=== PATIENT | male | born 1940 | race Two or more races ===

== ENCOUNTER 2018-10-23 14:53 | Inpatient (IN) | payer MEDICARE ==
[~2018-10-23] VITALS: Ht 170.2 cm; Wt 73.5 kg
[2018-10-23] MEDS ORDERED: HYDR-4354 PO (15:14)
[2018-10-23] MEDS ORDERED: MAGN400T6 PO (15:14)
[2018-10-23] MEDS ORDERED: CARV25TA2 PO (15:14)
[2018-10-23] MEDS ORDERED: ISOS30TA6 PO (15:14)
[2018-10-23] MEDS ORDERED: NA P133E RC (15:14)
[2018-10-23] MEDS ORDERED: FOLI1TAB16 PO (15:14)
[2018-10-23] MEDS ORDERED: LOSA25TA3 PO (15:14)
[2018-10-23] MEDS ORDERED: SULF1TAB48 PO (15:14)
[2018-10-23] MEDS ORDERED: AMLO10TA7 PO (15:14)
[2018-10-23] MEDS ORDERED: BISA10SU11 RC (15:14)
[2018-10-23] MEDS ORDERED: ATOR40TA PO (15:14)
[2018-10-23] MEDS ORDERED: ASCO500T10 PO (15:14)
[2018-10-23] MEDS ORDERED: FERR325T28 PO (15:14)
[2018-10-23] MEDS ORDERED: DOCU100C36 PO (15:14)
[2018-10-23] MEDS ORDERED: IPRA3AMP23 IH ×2 (15:14)
[2018-10-23] MEDS ORDERED: MAGN400O6 PO (15:14)
[2018-10-23] MEDS ORDERED: ASPI81TA31 PO (15:14)
[2018-10-23] MEDS ORDERED: POLY17PO4 PO (15:14)
[2018-10-23] MEDS ORDERED: BLOO-360 IN (15:40)
[2018-10-23] MEDS ORDERED: RIVA10TA PO (15:40)
[2018-10-23] MEDS ORDERED: ACET-73 PO (15:40)
[2018-10-23] MEDS ORDERED: INSU100I19 SQ (15:40)
[2018-10-23] MEDS ORDERED: PANT40TA4 PO (15:40)
[2018-10-23] MEDS ORDERED: ZINC220C8 PO (15:40)
[2018-10-23] MEDS ORDERED: ALBU2.5V38 IH ×2 (15:40)
[2018-10-23] MEDS ORDERED: HYDR-3326 PO (15:40)
[2018-10-23] MEDS ORDERED: METF-442 PO (15:40)
[2018-10-23] MEDS ORDERED: MULT-213 PO (15:40)
[2018-10-23 15:42] LABS: BASOPHILS # (AUTO) 0.1 K/uL (0.0-8.0); BASOPHILS % (AUTO) 0.7 % (0.0-2.0); EOSINOPHILS # (AUTO) 0.1 K/uL (0.0-0.7); EOSINOPHILS % (AUTO) 0.6 % (0.0-7.0); LYMPHOCYTES # (AUTO) 1.1 K/uL (20.0-40.0); LYMPHOCYTES % (AUTO) 11.6 % (20.5-51.5); MEAN CORPUSCULAR HEMOGLOBIN 23.7 uug (23.8-33.4); MEAN CORPUSCULAR HGB CONC 33 g/dL (32.5-36.3); MEAN CORPUSCULAR VOLUME 71.2 fL (73.0-96.2); MONOCYTES # (AUTO) 0.6 K/uL (2.0-10.0); MONOCYTES % (AUTO) 6.6 % (0.0-11.0); NEUTROPHILS # (AUTO) 7.4 K/uL (1.8-8.9); NEUTROPHILS % (AUTO) 80.5 % (38.5-71.5); PLATELET COUNT (AUTO) 241 K/uL (152-348); RED BLOOD CELL COUNT(AUTO) 2.88 MIL/uL (4.06-5.63); WHITE BLOOD COUNT (AUTO) 9.2 K/uL (3.6-10.2)
[2018-10-23 15:50] LABS: CARBON DIOXIDE 25 mmol/L (21-32); CHLORIDE 99 mmol/L (98-107); CREATININE 1.2 mg/dL (0.6-1.3); GLUCOSE 271 mg/dL (74-106); HEMATOCRIT 20.5 % (36.7-47.1); POTASSIUM 5.3 mmol/L (3.5-5.1); UREA NITROGEN, BLOOD 30 mg/dL (7-18)
[2018-10-23 15:52] LABS: HEMOGLOBIN 6.8 g/dL (12.5-16.3)
[2018-10-23 15:56] LABS: ALANINE AMINOTRANSFERASE 16 U/L (16-63); ALKALINE PHOSPHATASE 115 U/L (50-136); ASPARTATE AMINOTRANSFERASE 14 U/L (15-37); BILIRUBIN,DIRECT 0.1 mg/dL (0.0-0.2); BILIRUBIN,TOTAL 0.1 mg/dL (0.2-1.0)
[2018-10-23 16:01] LABS: LYMPHOCYTES % (MANUAL) 16 % (20-40); MONOCYTES % (MANUAL) 4 % (2-10); NEUTROPHILS % (MANUAL) 78 % (42-75)
[2018-10-23 18:45] VITALS: BP 120/78
[2018-10-23] MEDS ORDERED: ALBUTEROL SULFATE 2.5 MG/3 ML NEBU IH PRN (20:15)
[2018-10-23 20:33] VITALS: BP 123/51
[2018-10-23] MEDS ORDERED: ONDANSETRON 4 MG/2 ML VIAL IV PRN (20:45)
[2018-10-23] MEDS ORDERED: ACETAMINOPHEN 650 MG SUPP.RECT RC PRN (20:45)
[2018-10-23] MEDS ORDERED: DEXTROSE 50% 50 ML DISP.SYRIN IV PRN (20:45)
[2018-10-23] MEDS ORDERED: MORPHINE SULFATE 2 MG/1 ML DISP.SYRIN IV PRN (20:45)
[2018-10-23] MEDS ORDERED: IPRATROPIUM BROMIDE 0.5 MG/2.5 ML NEBU NEB PRN (20:45)
[2018-10-23] MEDS ORDERED: INSULIN DETEMIR 300 UNIT/3 ML CARTRIDGE SQ SCH (21:00)
[2018-10-23 21:11] LABS: IRON, SERUM 8 ug/dL (50-175)
[2018-10-23] MEDS: IV D5/ 0.9% NACL 1,000 ML IV PRN (22:02)
[2018-10-23] MEDS ORDERED: INSULIN GLARGINE,HUM 300 UNITS/3 ML CARTRIDGE SQ ONE (22:15)
[2018-10-23] MEDS: BLOOD SUGAR DIAGNOSTIC 1 EACH STRIP VI SCH ×2 (22:20→23:56)
[2018-10-23] MEDS: INSULIN GLARGINE,HUM 300 UNITS/3 ML CARTRIDGE SQ SCH (22:33)
[2018-10-23 23:51] VITALS: BP 122/55
[2018-10-24] VITALS (11 sets, daily range): BP systolic 123–162; BP diastolic 54–70
[2018-10-24] MEDS ORDERED: INSULIN REGULAR, HUMAN 300 UNIT/3 ML VIAL ONE (00:10)
[2018-10-24] MEDS: INSULIN REGULAR, HUMAN 300 UNIT/3 ML VIAL SQ PRN ×3 (00:39→17:55)
[2018-10-24] MEDS: HYDROMORPHONE 1 MG/1 ML DISP.SYRIN IV PRN ×4 (01:49→20:07)
[2018-10-24 04:10] LABS: HEMATOCRIT 20.3 % (36.7-47.1); HEMOGLOBIN 6.6 g/dL (12.5-16.3)
[2018-10-24] MEDS: BLOOD SUGAR DIAGNOSTIC 1 EACH STRIP VI SCH ×4 (05:55→20:14)
[2018-10-24 07:23] LABS: BASOPHILS % (AUTO) 0.5 % (0.0-2.0); EOSINOPHILS % (AUTO) 0.5 % (0.0-7.0); LYMPHOCYTES % (AUTO) 11.2 % (20.5-51.5); MEAN CORPUSCULAR HEMOGLOBIN 23.8 uug (23.8-33.4); MEAN CORPUSCULAR HGB CONC 33 g/dL (32.5-36.3); MEAN CORPUSCULAR VOLUME 71.3 fL (73.0-96.2); MONOCYTES # (AUTO) 0.7 K/uL (2.0-10.0); MONOCYTES % (AUTO) 7.1 % (0.0-11.0); NEUTROPHILS # (AUTO) 7.4 K/uL (1.8-8.9); NEUTROPHILS % (AUTO) 80.7 % (38.5-71.5); PLATELET COUNT (AUTO) 294 K/uL (152-348); RED BLOOD CELL COUNT(AUTO) 2.95 MIL/uL (4.06-5.63); WHITE BLOOD COUNT (AUTO) 9.1 K/uL (3.6-10.2)
[2018-10-24 07:30] LABS: ALANINE AMINOTRANSFERASE 13 U/L (16-63); ALKALINE PHOSPHATASE 115 U/L (50-136); ASPARTATE AMINOTRANSFERASE 14 U/L (15-37); BILIRUBIN,TOTAL 0.1 mg/dL (0.2-1.0); CARBON DIOXIDE 25 mmol/L (21-32); CHLORIDE 102 mmol/L (98-107); CHOLESTEROL 89 mg/dL (<200); GLUCOSE 109 mg/dL (74-106); HDL CHOLESTEROL 36 mg/dL (40-60); MAGNESIUM 2.3 mg/dL (1.8-2.4); PHOSPHOROUS 3.8 mg/dL (2.5-4.9); POTASSIUM 4.9 mmol/L (3.5-5.1); TOTAL PROTEIN, SERUM 6.2 g/dL (6.4-8.2); TRIGLYCERIDES 35 MG/DL (30-150); UREA NITROGEN, BLOOD 25 mg/dL (7-18)
[2018-10-24] MEDS ORDERED: PANTOPRAZOLE SODIUM 40 MG VIAL IV SCH (09:00)
[2018-10-24] MEDS: MUPIROCIN 2% OINT 22 GM TUBE TP SCH ×2 (09:21→20:07)
[2018-10-24 09:33] LABS: THYROID STIMULATING HORMONE 1.464 mIU/mL (0.358-3.740)
[2018-10-24] MEDS: SODIUM HYPOCHLORITE 0.125% 473 ML BOTTLE TP SCH (09:52)
[2018-10-24] MEDS: FAMOTIDINE. 20 MG/2 ML VIAL IV SCH ×2 (10:16→20:06)
[2018-10-24 10:42] LABS: BASOPHILS % (MANUAL) 1 % (0-2); EOSINOPHILS % (MANUAL) 1 % (0-8); LYMPHOCYTES % (MANUAL) 11 % (20-40); MONOCYTES % (MANUAL) 4 % (2-10); NEUTROPHILS % (MANUAL) 83 % (42-75)
[2018-10-24] MEDS ORDERED: Z GUARD REMEDY PASTE 57 GM TUBE TOP PRN (12:30)
[2018-10-24] MEDS: IV D5/ 0.9% NACL 1,000 ML IV PRN (15:30)
[2018-10-24] MEDS: FUROSEMIDE 20 MG/2 ML VIAL IV SCH (16:30)
[2018-10-24] MEDS: INSULIN GLARGINE,HUM 300 UNITS/3 ML CARTRIDGE SQ SCH (20:14)
[2018-10-24] MEDS ORDERED: VANCOMYCIN IV 1 G in PREMIXED 0 EACH IV SCH (21:30)
[2018-10-24] MEDS ORDERED: PIPERACILLIN/TAZO 0.75 G in IV DEXTROSE 5% 50 ML IV PRN (21:30)
[2018-10-24] MEDS ORDERED: VANCOMYCIN IV 1 G in PREMIXED 0 EACH IV ONE (23:00)
[2018-10-24] MEDS ORDERED: PIPERACILLIN/TAZOBACTAM/D5W 50 ML IV ONE (23:35)
[2018-10-24] MEDS ORDERED: VANCOMYCIN 1000 MG VIAL ONE (23:35)
[2018-10-25] MEDS ORDERED: VANCOMYCIN IV 1,000 MG in IV NORMAL SALINE 250 ML IV ONE ×2
[2018-10-25 00:58] VITALS: BP 149/57
[2018-10-25] MEDS: HYDROMORPHONE 1 MG/1 ML DISP.SYRIN IV PRN ×3 (02:37→22:03)
[2018-10-25 04:00] VITALS: BP 156/60
[2018-10-25] MEDS ORDERED: PIPERACILLIN/TAZOBACTAM/D5W 50 ML IV ONE (05:33)
[2018-10-25] MEDS: BLOOD SUGAR DIAGNOSTIC 1 EACH STRIP VI SCH ×3 (05:41→17:22)
[2018-10-25] MEDS: PIPERACILLIN/TAZOBACTAM/D5W 50 ML IV SCH ×2 (06:13)
[2018-10-25 06:27] LABS: BASOPHILS # (AUTO) 0.1 K/uL (0.0-8.0); BASOPHILS % (AUTO) 0.5 % (0.0-2.0); EOSINOPHILS # (AUTO) 0.1 K/uL (0.0-0.7); EOSINOPHILS % (AUTO) 0.6 % (0.0-7.0); HEMATOCRIT 24.8 % (36.7-47.1); HEMOGLOBIN 8.2 g/dL (12.5-16.3); LYMPHOCYTES # (AUTO) 1.1 K/uL (20.0-40.0); LYMPHOCYTES % (AUTO) 11.9 % (20.5-51.5); MEAN CORPUSCULAR HEMOGLOBIN 24.2 uug (23.8-33.4); MEAN CORPUSCULAR HGB CONC 33 g/dL (32.5-36.3); MEAN CORPUSCULAR VOLUME 73.6 fL (73.0-96.2); MONOCYTES # (AUTO) 0.7 K/uL (2.0-10.0); MONOCYTES % (AUTO) 7.3 % (0.0-11.0); NEUTROPHILS # (AUTO) 7.4 K/uL (1.8-8.9); NEUTROPHILS % (AUTO) 79.7 % (38.5-71.5); PLATELET COUNT (AUTO) 351 K/uL (152-348); RED BLOOD CELL COUNT(AUTO) 3.37 MIL/uL (4.06-5.63); WHITE BLOOD COUNT (AUTO) 9.3 K/uL (3.6-10.2)
[2018-10-25 06:37] LABS: ALANINE AMINOTRANSFERASE 19 U/L (16-63); ALKALINE PHOSPHATASE 135 U/L (50-136); ASPARTATE AMINOTRANSFERASE 16 U/L (15-37); BILIRUBIN,TOTAL 0.3 mg/dL (0.2-1.0); CARBON DIOXIDE 27 mmol/L (21-32); CHLORIDE 100 mmol/L (98-107); CREATININE 0.9 mg/dL (0.6-1.3); GLUCOSE 96 mg/dL (74-106); MAGNESIUM 1.9 mg/dL (1.8-2.4); PHOSPHOROUS 3.3 mg/dL (2.5-4.9); POTASSIUM 4.6 mmol/L (3.5-5.1); TOTAL PROTEIN, SERUM 6.3 g/dL (6.4-8.2); UREA NITROGEN, BLOOD 16 mg/dL (7-18)
[2018-10-25 08:50] LABS: *BILIRUBIN,URIN NEGATIVE (NEGATIVE); *CLARITY,URINE CLEAR (CLEAR); *COLOR,URINE YELLOW (YELLOW); *KETONES,URINE NEGATIVE (NEGATIVE); *UROBILINOGEN,URINE 0.2 E.U./dl (NORMAL); LEUKOCYTE ESTERASE ,URINE NEGATIVE (NEGATIVE); NITRITE, URINE NEGATIVE (NEGATIVE); UGLUCOSE NEGATIVE (NEGATIVE)
[2018-10-25 09:02] LABS: *BLOOD, URINE TRACE (NEGATIVE)
[2018-10-25 09:04] LABS: BACTERIA,URINE NONE SEEN /HPF (NONE SEEN); SQUAMOUS EPITHELIAL CELL,UR NONE SEEN /HPF (NONE SEEN); WBC,URINE 0-3 /HPF (0-3)
[2018-10-25] MEDS: FAMOTIDINE. 20 MG/2 ML VIAL IV SCH (09:23)
[2018-10-25] MEDS: FUROSEMIDE 20 MG/2 ML VIAL IV SCH (09:23)
[2018-10-25] MEDS: MUPIROCIN 2% OINT 22 GM TUBE TP SCH ×2 (09:24→20:54)
[2018-10-25] MEDS: SODIUM HYPOCHLORITE 0.125% 473 ML BOTTLE TP SCH (09:24)
[2018-10-25] MEDS: IV D5/ 0.9% NACL 1,000 ML IV PRN (09:38)
[2018-10-25 11:06] VITALS: BP 151/73
[2018-10-25] MEDS: PIPERACILLIN/TAZOBACTAM/D5W 3.375 G in PREMIXED 1 EACH IV SCH ×2 (11:27→20:52)
[2018-10-25] MEDS ORDERED: PIPERACILLIN/TAZOBACTAM/D5W 50 ML IV SCH (12:00)
[2018-10-25] MEDS ORDERED: FUROSEMIDE 20 MG/2 ML VIAL IV ONE (15:00)
[2018-10-25] MEDS ORDERED: FLEET ENEMA 133 ML BOTTLE RC ONE (15:15)
[2018-10-25] MEDS ORDERED: GOLYTELY 4000 ML BOTTLE PO ONE (15:15)
[2018-10-25] MEDS ORDERED: MAGNESIUM CITRATE 296 ML BOTTLE PO ONE (15:15)
[2018-10-25 15:32] VITALS: BP 127/79
[2018-10-25] MEDS: VANCOMYCIN IV 1 G in PREMIXED 0 EACH IV SCH (17:19)
[2018-10-25] MEDS: PROTEIN SUPPLEMENT (PROSTAT) 30 ML LIQUID PO SCH (17:28)
[2018-10-25] MEDS: INSULIN REGULAR, HUMAN 300 UNIT/3 ML VIAL SQ PRN (17:34)
[2018-10-25 20:20] VITALS: BP 152/74
[2018-10-25] MEDS: INSULIN GLARGINE,HUM 300 UNITS/3 ML CARTRIDGE SQ SCH (20:53)
[2018-10-25] MEDS ORDERED: PIPERACILLIN/TAZO 0.75 G in IV DEXTROSE 5% 50 ML IV SCH (21:30)
[2018-10-26] VITALS: BP 132/62
[2018-10-26] MEDS: BLOOD SUGAR DIAGNOSTIC 1 EACH STRIP VI SCH ×5 (00:03→23:54)
[2018-10-26] MEDS: INSULIN REGULAR, HUMAN 300 UNIT/3 ML VIAL SQ PRN ×3 (00:04→17:10)
[2018-10-26 04:00] VITALS: BP 164/64
[2018-10-26] MEDS: PIPERACILLIN/TAZOBACTAM/D5W 3.375 G in PREMIXED 1 EACH IV SCH ×3 (04:17→19:01)
[2018-10-26] MEDS: PANTOPRAZOLE SODIUM 40 MG TABLET.DR PO SCH (06:01)
[2018-10-26] MEDS: HYDROMORPHONE 1 MG/1 ML DISP.SYRIN IV PRN ×2 (07:02→12:23)
[2018-10-26 07:06] LABS: BASOPHILS # (AUTO) 0.1 K/uL (0.0-8.0); BASOPHILS % (AUTO) 0.9 % (0.0-2.0); EOSINOPHILS # (AUTO) 0.1 K/uL (0.0-0.7); EOSINOPHILS % (AUTO) 0.8 % (0.0-7.0); HEMATOCRIT 28.6 % (36.7-47.1); HEMOGLOBIN 9.5 g/dL (12.5-16.3); LYMPHOCYTES # (AUTO) 1.1 K/uL (20.0-40.0); LYMPHOCYTES % (AUTO) 10.1 % (20.5-51.5); MEAN CORPUSCULAR HGB CONC 33 g/dL (32.5-36.3); MEAN CORPUSCULAR VOLUME 72.3 fL (73.0-96.2); MONOCYTES # (AUTO) 0.9 K/uL (2.0-10.0); MONOCYTES % (AUTO) 8.6 % (0.0-11.0); NEUTROPHILS # (AUTO) 8.3 K/uL (1.8-8.9); NEUTROPHILS % (AUTO) 79.6 % (38.5-71.5); PLATELET COUNT (AUTO) 415 K/uL (152-348); RED BLOOD CELL COUNT(AUTO) 3.95 MIL/uL (4.06-5.63); WHITE BLOOD COUNT (AUTO) 10.4 K/uL (3.6-10.2)
[2018-10-26 07:09] LABS: CARBON DIOXIDE 28 mmol/L (21-32); CHLORIDE 94 mmol/L (98-107); CREATININE 0.7 mg/dL (0.6-1.3); GLUCOSE 128 mg/dL (74-106); MAGNESIUM 1.5 mg/dL (1.8-2.4); PHOSPHOROUS 3.5 mg/dL (2.5-4.9); POTASSIUM 3.6 mmol/L (3.5-5.1); UREA NITROGEN, BLOOD 11 mg/dL (7-18)
[2018-10-26] MEDS ORDERED: PROTEIN SUPPLEMENT (PROSTAT) 30 ML LIQUID PO SCH (08:00)
[2018-10-26 08:18] LABS: BAND % (MANUAL) 1 % (0-10); BASOPHILS % (MANUAL) 1 % (0-2); EOSINOPHILS % (MANUAL) 1 % (0-8); LYMPHOCYTES % (MANUAL) 11 % (20-40); MONOCYTES % (MANUAL) 9 % (2-10); NEUTROPHILS % (MANUAL) 77 % (42-75)
[2018-10-26] MEDS: FUROSEMIDE 20 MG/2 ML VIAL IV SCH (08:43)
[2018-10-26] MEDS: SODIUM HYPOCHLORITE 0.125% 473 ML BOTTLE TP SCH (08:48)
[2018-10-26] MEDS: PROTEIN SUPPLEMENT (PROSTAT) 30 ML LIQUID PO SCH ×3 (08:51→17:12)
[2018-10-26] MEDS: MUPIROCIN 2% OINT 22 GM TUBE TP SCH ×2 (08:53→21:10)
[2018-10-26] MEDS ORDERED: MAGNESIUM CITRATE 296 ML BOTTLE PO ONE (09:00)
[2018-10-26] MEDS ORDERED: GOLYTELY 4000 ML BOTTLE PO ONE (09:00)
[2018-10-26] MEDS ORDERED: FLEET ENEMA 133 ML BOTTLE RC ONE (09:00)
[2018-10-26] MEDS: VANCOMYCIN IV 1 G in PREMIXED 0 EACH IV SCH (10:46)
[2018-10-26 11:02] VITALS: BP 134/67
[2018-10-26] MEDS: MAGNESIUM SULFATE/D5W 100 ML IV SCH ×2 (13:35→14:32)
[2018-10-26] MEDS ORDERED: FUROSEMIDE 20 MG/2 ML VIAL IV ONE ×2 (14:30→15:00)
[2018-10-26] MEDS: CARVEDILOL 6.25 MG TABLET PO SCH (17:07)
[2018-10-26 17:58] VITALS: BP 130/82
[2018-10-26 20:25] VITALS: BP 168/75
[2018-10-26] MEDS: FERROUS SULFATE 325 MG TABEC PO SCH (20:49)
[2018-10-26] MEDS: ENALAPRILAT DIHYDRATE 1.25 MG/1 ML VIAL IV PRN (20:49)
[2018-10-26] MEDS: INSULIN GLARGINE,HUM 300 UNITS/3 ML CARTRIDGE SQ SCH (20:51)
[2018-10-26 22:00] VITALS: BP 130/67
[2018-10-27] VITALS (8 sets, daily range): BP systolic 97–168; BP diastolic 58–73
[2018-10-27] MEDS: VANCOMYCIN IV 1 G in PREMIXED 0 EACH IV SCH (03:26)
[2018-10-27] MEDS: PIPERACILLIN/TAZOBACTAM/D5W 3.375 G in PREMIXED 1 EACH IV SCH ×3 (04:05→20:16)
[2018-10-27] MEDS ORDERED: IV NS 1000 ML 1,000 ML IV ONE (06:00)
[2018-10-27] MEDS: INSULIN REGULAR, HUMAN 300 UNIT/3 ML VIAL SQ PRN ×2 (06:03→17:00)
[2018-10-27] MEDS: BLOOD SUGAR DIAGNOSTIC 1 EACH STRIP VI SCH ×4 (06:03→20:24)
[2018-10-27] MEDS: PANTOPRAZOLE SODIUM 40 MG TABLET.DR PO SCH (06:04)
[2018-10-27 06:33] LABS: ALANINE AMINOTRANSFERASE 26 U/L (16-63); ALKALINE PHOSPHATASE 141 U/L (50-136); ASPARTATE AMINOTRANSFERASE 26 U/L (15-37); BILIRUBIN,TOTAL 0.4 mg/dL (0.2-1.0); CARBON DIOXIDE 31 mmol/L (21-32); CHLORIDE 95 mmol/L (98-107); CREATININE 0.8 mg/dL (0.6-1.3); GLUCOSE 175 mg/dL (74-106); MAGNESIUM 1.8 mg/dL (1.8-2.4); TOTAL PROTEIN, SERUM 6.2 g/dL (6.4-8.2); UREA NITROGEN, BLOOD 11 mg/dL (7-18)
[2018-10-27 06:42] LABS: BASOPHILS % (AUTO) 0.4 % (0.0-2.0); EOSINOPHILS # (AUTO) 0.1 K/uL (0.0-0.7); EOSINOPHILS % (AUTO) 1.1 % (0.0-7.0); LYMPHOCYTES # (AUTO) 1.2 K/uL (20.0-40.0); LYMPHOCYTES % (AUTO) 11.5 % (20.5-51.5); MEAN CORPUSCULAR HGB CONC 33 g/dL (32.5-36.3); MEAN CORPUSCULAR VOLUME 72.3 fL (73.0-96.2); MONOCYTES # (AUTO) 0.7 K/uL (2.0-10.0); MONOCYTES % (AUTO) 6.7 % (0.0-11.0); NEUTROPHILS # (AUTO) 8.3 K/uL (1.8-8.9); NEUTROPHILS % (AUTO) 80.3 % (38.5-71.5); PLATELET COUNT (AUTO) 480 K/uL (152-348); RED BLOOD CELL COUNT(AUTO) 4.15 MIL/uL (4.06-5.63); WHITE BLOOD COUNT (AUTO) 10.3 K/uL (3.6-10.2)
[2018-10-27 06:44] LABS: POTASSIUM 2.8 mmol/L (3.5-5.1)
[2018-10-27] MEDS: PROTEIN SUPPLEMENT (PROSTAT) 30 ML LIQUID PO SCH ×3 (08:00→16:56)
[2018-10-27] MEDS: FUROSEMIDE 20 MG/2 ML VIAL IV SCH (08:02)
[2018-10-27] MEDS: CARVEDILOL 6.25 MG TABLET PO SCH ×2 (08:02→16:57)
[2018-10-27] MEDS: POTASSIUM CHLORIDE 50 ML IV SCH ×2 (08:14→10:02)
[2018-10-27] MEDS ORDERED: VANCOMYCIN IV 1 G in PREMIXED 0 EACH IV SCH (09:00)
[2018-10-27] MEDS: FERROUS SULFATE 325 MG TABEC PO SCH ×2 (09:00→20:16)
[2018-10-27] MEDS: MUPIROCIN 2% OINT 22 GM TUBE TP SCH ×2 (10:03→20:32)
[2018-10-27] MEDS: SODIUM HYPOCHLORITE 0.125% 473 ML BOTTLE TP SCH (10:03)
[2018-10-27] MEDS ORDERED: FENTANYL CITRATE 250 MCG/5 ML AMPUL ONE (10:54)
[2018-10-27] MEDS ORDERED: MIDAZOLAM HCL 2 MG/2 ML VIAL ONE (10:54)
[2018-10-27] MEDS ORDERED: ROCURONIUM BROMIDE 50 MG/5 ML VIAL ONE (10:55)
[2018-10-27] MEDS ORDERED: POLYMYXIN B SULFATE 500,000 UNITS, BACITRACIN 50,000 UNITS, NORMAL SALINE 20 ML MC ONE ×3 (11:00)
[2018-10-27] MEDS ORDERED: BUPIVACAINE HCL/DEX-WATER/PF 0.75%, 2 ML AMPUL MC ONE (12:43)
[2018-10-27] MEDS ORDERED: CEFAZOLIN 1 G VIAL MC ONE (14:54)
[2018-10-27] MEDS ORDERED: DEXTROSE IT ONE (14:54)
[2018-10-27] MEDS ORDERED: METOCLOPRAMIDE HCL 10 MG/2 ML VIAL IV ONE (14:54)
[2018-10-27] MEDS ORDERED: IRR NORMAL SALINE IRRIGATION 1,000 ML BOTTLE IR ONE (14:54)
[2018-10-27] MEDS ORDERED: ONDANSETRON 4 MG/2 ML VIAL IV ONE (14:54)
[2018-10-27] MEDS ORDERED: PROPOFOL 200 MG/20 ML BOTTLE IV ONE (14:54)
[2018-10-27] MEDS ORDERED: SEVOFLURANE 250 ML BOTTLE IH ONE (14:54)
[2018-10-27] MEDS ORDERED: LIDOCAINE 5% IT ONE (14:54)
[2018-10-27] MEDS ORDERED: IV LACTATED RINGERS SOLUTION 1,000 ML BAG MC ONE (14:54)
[2018-10-27] MEDS ORDERED: DEXTROSE 50% 50 ML DISP.SYRIN IV PRN (16:00)
[2018-10-27] MEDS: HYDROMORPHONE 1 MG/1 ML DISP.SYRIN IV PRN ×2 (16:58→21:07)
[2018-10-27] MEDS ORDERED: MAGNESIUM CITRATE 296 ML BOTTLE PO ONE (18:00)
[2018-10-27] MEDS ORDERED: GOLYTELY 4000 ML BOTTLE PO ONE (18:00)
[2018-10-27] MEDS ORDERED: FLEET ENEMA 133 ML BOTTLE RC ONE ×2 (18:00→18:45)
[2018-10-27] MEDS: INSULIN REGULAR, HUMAN 300 UNITS/3 ML VIAL SQ PRN (20:28)
[2018-10-27] MEDS: INSULIN GLARGINE,HUM 300 UNITS/3 ML CARTRIDGE SQ SCH (20:30)
[2018-10-27] MEDS ORDERED: AMPICILLIN IV SCH (22:00)
[2018-10-27] MEDS ORDERED: NS IV SCH (22:00)
[2018-10-27] MEDS: CEFTRIAXONE 1 G in IV DEXTROSE 5% 50 ML IV SCH (22:12)
[2018-10-28] VITALS: BP 135/68
[2018-10-28] MEDS: AMPICILLIN IV SCH ×4 (00:50→17:44)
[2018-10-28] MEDS: NS IV SCH ×4 (00:50→17:44)
[2018-10-28] MEDS: HYDROMORPHONE 1 MG/1 ML DISP.SYRIN IV PRN ×3 (01:19→19:12)
[2018-10-28 04:00] VITALS: BP 191/90
[2018-10-28] MEDS ORDERED: HYDROMORPHONE 2 MG/1 ML DISP.SYRIN IV PRN (05:30)
[2018-10-28] MEDS: ENALAPRILAT DIHYDRATE 1.25 MG/1 ML VIAL IV PRN (06:28)
[2018-10-28] MEDS: PANTOPRAZOLE SODIUM 40 MG TABLET.DR PO SCH (06:28)
[2018-10-28] MEDS: BLOOD SUGAR DIAGNOSTIC 1 EACH STRIP VI SCH ×4 (06:37→20:40)
[2018-10-28 07:01] LABS: BASOPHILS % (AUTO) 0.5 % (0.0-2.0); EOSINOPHILS # (AUTO) 0.2 K/uL (0.0-0.7); EOSINOPHILS % (AUTO) 2.4 % (0.0-7.0); HEMATOCRIT 30.6 % (36.7-47.1); HEMOGLOBIN 10.1 g/dL (12.5-16.3); LYMPHOCYTES # (AUTO) 1.2 K/uL (20.0-40.0); LYMPHOCYTES % (AUTO) 12.5 % (20.5-51.5); MEAN CORPUSCULAR HEMOGLOBIN 23.8 uug (23.8-33.4); MEAN CORPUSCULAR HGB CONC 33 g/dL (32.5-36.3); MEAN CORPUSCULAR VOLUME 71.8 fL (73.0-96.2); MONOCYTES # (AUTO) 0.8 K/uL (2.0-10.0); MONOCYTES % (AUTO) 8.3 % (0.0-11.0); NEUTROPHILS # (AUTO) 7.2 K/uL (1.8-8.9); NEUTROPHILS % (AUTO) 76.3 % (38.5-71.5); PLATELET COUNT (AUTO) 517 K/uL (152-348); RED BLOOD CELL COUNT(AUTO) 4.27 MIL/uL (4.06-5.63); WHITE BLOOD COUNT (AUTO) 9.4 K/uL (3.6-10.2)
[2018-10-28 07:42] LABS: CARBON DIOXIDE 29 mmol/L (21-32); CHLORIDE 96 mmol/L (98-107); CREATININE 0.6 mg/dL (0.6-1.3); GLUCOSE 114 mg/dL (74-106); MAGNESIUM 1.6 mg/dL (1.8-2.4); PHOSPHOROUS 2.9 mg/dL (2.5-4.9); POTASSIUM 3.1 mmol/L (3.5-5.1); UREA NITROGEN, BLOOD 10 mg/dL (7-18)
[2018-10-28 07:56] LABS: LYMPHOCYTES % (MANUAL) 12 % (20-40); NEUTROPHILS % (MANUAL) 79 % (42-75)
[2018-10-28 07:58] LABS: EOSINOPHILS % (MANUAL) 2 % (0-8); MONOCYTES % (MANUAL) 7 % (2-10)
[2018-10-28] MEDS ORDERED: HYDROMORPHONE 1 MG/1 ML DISP.SYRIN IV PRN (08:00)
[2018-10-28] MEDS: FUROSEMIDE 20 MG/2 ML VIAL IV SCH (08:53)
[2018-10-28] MEDS: CARVEDILOL 6.25 MG TABLET PO SCH ×2 (08:53→17:44)
[2018-10-28] MEDS: FERROUS SULFATE 325 MG TABEC PO SCH ×2 (08:53→20:37)
[2018-10-28] MEDS: PROTEIN SUPPLEMENT (PROSTAT) 30 ML LIQUID PO SCH ×3 (08:57→17:47)
[2018-10-28] MEDS: MUPIROCIN 2% OINT 22 GM TUBE TP SCH (08:58)
[2018-10-28] MEDS: SODIUM HYPOCHLORITE 0.125% 473 ML BOTTLE TP SCH (08:58)
[2018-10-28] MEDS ORDERED: GOLYTELY 4000 ML BOTTLE PO ONE (09:00)
[2018-10-28] MEDS ORDERED: MAGNESIUM CITRATE 296 ML BOTTLE PO ONE (09:00)
[2018-10-28] MEDS ORDERED: FLEET ENEMA 133 ML BOTTLE RC ONE (10:00)
[2018-10-28] MEDS ORDERED: POTASSIUM CHLORIDE 20 MEQ TAB.PRT.SR PO ONE (11:00)
[2018-10-28] MEDS ORDERED: MAGNESIUM OXIDE 400 MG TABLET PO ONE (11:00)
[2018-10-28 11:15] VITALS: BP 148/69
[2018-10-28] MEDS ORDERED: hydrALAZINE HCL 50 MG TABLET PO PRN (12:00)
[2018-10-28] MEDS: LISINOPRIL 10 MG TABLET PO SCH ×2 (12:23→20:37)
[2018-10-28] MEDS: IBUPROFEN 400 MG TABLET PO PRN (12:24)
[2018-10-28] MEDS: INSULIN REGULAR, HUMAN 300 UNIT/3 ML VIAL SQ PRN (12:29)
[2018-10-28 15:16] VITALS: BP 155/64
[2018-10-28] MEDS ORDERED: INSU100V11 (16:57)
[2018-10-28 20:32] VITALS: BP 143/80
[2018-10-28] MEDS: INSULIN GLARGINE,HUM 300 UNITS/3 ML CARTRIDGE SQ SCH (20:42)
[2018-10-28] MEDS: CEFTRIAXONE 1 G in IV DEXTROSE 5% 50 ML IV SCH (20:58)
[2018-10-29] MEDS: NS IV SCH ×4 (01:34→18:35)
[2018-10-29] MEDS: AMPICILLIN IV SCH ×4 (01:34→18:35)
[2018-10-29 05:30] VITALS: BP 181/78
[2018-10-29] MEDS: BLOOD SUGAR DIAGNOSTIC 1 EACH STRIP VI SCH ×4 (06:43→23:00)
[2018-10-29] MEDS: PANTOPRAZOLE SODIUM 40 MG TABLET.DR PO SCH (06:43)
[2018-10-29 06:59] LABS: BASOPHILS # (AUTO) 0.1 K/uL (0.0-8.0); BASOPHILS % (AUTO) 0.6 % (0.0-2.0); EOSINOPHILS # (AUTO) 0.2 K/uL (0.0-0.7); EOSINOPHILS % (AUTO) 1.9 % (0.0-7.0); HEMATOCRIT 27.4 % (36.7-47.1); HEMOGLOBIN 9.2 g/dL (12.5-16.3); LYMPHOCYTES % (AUTO) 11.7 % (20.5-51.5); MEAN CORPUSCULAR HEMOGLOBIN 23.9 uug (23.8-33.4); MEAN CORPUSCULAR HGB CONC 34 g/dL (32.5-36.3); MEAN CORPUSCULAR VOLUME 71.3 fL (73.0-96.2); MONOCYTES # (AUTO) 0.8 K/uL (2.0-10.0); MONOCYTES % (AUTO) 8.8 % (0.0-11.0); NEUTROPHILS # (AUTO) 6.6 K/uL (1.8-8.9); PLATELET COUNT (AUTO) 507 K/uL (152-348); RED BLOOD CELL COUNT(AUTO) 3.85 MIL/uL (4.06-5.63); WHITE BLOOD COUNT (AUTO) 8.6 K/uL (3.6-10.2)
[2018-10-29 07:13] LABS: CARBON DIOXIDE 26 mmol/L (21-32); CHLORIDE 97 mmol/L (98-107); CREATININE 0.5 mg/dL (0.6-1.3); GLUCOSE 134 mg/dL (74-106); MAGNESIUM 1.4 mg/dL (1.8-2.4); PHOSPHOROUS 2.6 mg/dL (2.5-4.9); UREA NITROGEN, BLOOD 10 mg/dL (7-18)
[2018-10-29] MEDS: PROTEIN SUPPLEMENT (PROSTAT) 30 ML LIQUID PO SCH ×3 (08:00→16:41)
[2018-10-29] MEDS: LISINOPRIL 10 MG TABLET PO SCH ×2 (08:26→21:42)
[2018-10-29] MEDS: FUROSEMIDE 20 MG/2 ML VIAL IV SCH (08:26)
[2018-10-29] MEDS: CARVEDILOL 6.25 MG TABLET PO SCH ×2 (08:27→18:33)
[2018-10-29] MEDS: FERROUS SULFATE 325 MG TABEC PO SCH ×2 (08:29→21:43)
[2018-10-29 11:02] VITALS: BP 163/67
[2018-10-29] MEDS ORDERED: ETOMIDATE 20 MG/10 ML VIAL MC ONE (11:59)
[2018-10-29] MEDS ORDERED: IV NORMAL SALINE 1000 ML BAG IV ONE (11:59)
[2018-10-29] MEDS ORDERED: IRR NORMAL SALINE IRRIGATION 1,000 ML BOTTLE IR ONE (11:59)
[2018-10-29] MEDS ORDERED: PROPOFOL 200 MG/20 ML BOTTLE IV ONE (11:59)
[2018-10-29] MEDS ORDERED: LIDOCAINE HCL-MPF 1% 5 ML VIAL MC ONE (11:59)
[2018-10-29] MEDS ORDERED: GLUCAGON,HUMAN RECOMBINANT 1 MG VIAL IVP ONE (11:59)
[2018-10-29] MEDS ORDERED: POTASSIUM CHLORIDE 50 ML IV SCH (12:00)
[2018-10-29] MEDS ORDERED: MAGNESIUM SULFATE/D5W 100 ML IV SCH (12:45)
[2018-10-29] MEDS: MAGNESIUM SULFATE/D5W 100 ML IV SCH ×4 (12:59→23:50)
[2018-10-29] MEDS: POTASSIUM CHLORIDE 10 MEQ, LIDOCAINE-MPF 1% 1 ML in IV DEXTROSE 5% 100 ML IV SCH ×2 (13:05→13:49)
[2018-10-29 15:29] VITALS: BP 166/75
[2018-10-29 18:30] VITALS: BP 180/81
[2018-10-29] MEDS ORDERED: IV NS 1000 ML 1,000 ML IV PRN (18:30)
[2018-10-29 19:08] VITALS: BP 157/70
[2018-10-29] MEDS: CEFTRIAXONE 1 G in IV DEXTROSE 5% 50 ML IV SCH (22:49)
[2018-10-29] MEDS: INSULIN REGULAR, HUMAN 300 UNITS/3 ML VIAL SQ PRN (23:15)
[2018-10-29] MEDS: INSULIN GLARGINE,HUM 300 UNITS/3 ML CARTRIDGE SQ SCH (23:16)
[2018-10-30] MEDS: NS IV SCH ×3 (00:17→11:05)
[2018-10-30] MEDS: AMPICILLIN IV SCH ×3 (00:17→11:05)
[2018-10-30] MEDS: HYDROMORPHONE 1 MG/1 ML DISP.SYRIN IV PRN ×2 (01:47→05:44)
[2018-10-30 03:15] VITALS: BP 170/75
[2018-10-30] MEDS: IBUPROFEN 400 MG TABLET PO PRN (04:35)
[2018-10-30] MEDS: PANTOPRAZOLE SODIUM 40 MG TABLET.DR PO SCH (06:46)
[2018-10-30] MEDS: BLOOD SUGAR DIAGNOSTIC 1 EACH STRIP VI SCH ×2 (06:47→10:44)
[2018-10-30 07:13] LABS: CARBON DIOXIDE 26 mmol/L (21-32); CHLORIDE 100 mmol/L (98-107); CREATININE 0.6 mg/dL (0.6-1.3); GLUCOSE 137 mg/dL (74-106); MAGNESIUM 2.1 mg/dL (1.8-2.4); POTASSIUM 2.9 mmol/L (3.5-5.1); UREA NITROGEN, BLOOD 11 mg/dL (7-18)
[2018-10-30] MEDS: INSULIN REGULAR, HUMAN 300 UNIT/3 ML VIAL SQ PRN (07:14)
[2018-10-30 07:44] VITALS: BP 120/47
[2018-10-30] MEDS ORDERED: CARVEDILOL 6.25 MG TABLET PO SCH (08:00)
[2018-10-30] MEDS ORDERED: CARVEDILOL 12.5 MG TABLET PO SCH (08:00)
[2018-10-30] MEDS: PROTEIN SUPPLEMENT (PROSTAT) 30 ML LIQUID PO SCH ×2 (08:06→11:41)
[2018-10-30] MEDS: FUROSEMIDE 20 MG/2 ML VIAL IV SCH (08:06)
[2018-10-30] MEDS: FERROUS SULFATE 325 MG TABEC PO SCH (08:07)
[2018-10-30] MEDS: LISINOPRIL 10 MG TABLET PO SCH (08:28)
[2018-10-30] MEDS ORDERED: POTASSIUM CHLORIDE 20 MEQ TAB.PRT.SR PO ONE ×2 (10:15→10:30)
[2018-10-30] MEDS ORDERED: Insulin Glargine,Hum SQ (10:38)
[2018-10-30] MEDS ORDERED: PANT40TA2 PO (10:38)
[2018-10-30] MEDS ORDERED: LISI10TA5 PO (10:38)
[2018-10-30] MEDS ORDERED: CARV12.52 PO (10:38)
[2018-10-30] MEDS ORDERED: FURO-152 PO (10:38)
[2018-10-30] MEDS ORDERED: SULF1TAB48 PO (10:45)
[2018-10-30] MEDS ORDERED: IBUP-1953 PO (10:45)
[2018-10-30 11:00] VITALS: BP 139/61
== END 2018-10-30 12:00 | DRG 981 ==
LOC: ER 14:53 → TELE3 18:23 → MEDSURG3 10-28 11:50
PROVIDERS: ADMIT Internal Medicine; ATTEND Internal Medicine
PROC: 30233N1 Transfusion of Nonautologous Red Blood Cells into Peripheral Vein, Percutaneous Approach (ICD-10-PCS; principal; 2018-10-24)
PROC: 0Y6J0Z2 Detachment at Left Lower Leg, Mid, Open Approach (ICD-10-PCS; 2018-10-27)
PROC: 0DJ08ZZ Inspection of Upper Intestinal Tract, Via Natural or Artificial Opening Endoscopic (ICD-10-PCS; 2018-10-29)
PROC: 0DBP8ZX Excision of Rectum, Via Natural or Artificial Opening Endoscopic, Diagnostic (ICD-10-PCS; 2018-10-29)
DX: D50.9 Iron deficiency anemia, unspecified (principal); I50.33 Acute on chronic diastolic (congestive) heart failure; E43 Unspecified severe protein-calorie malnutrition; N17.0 Acute kidney failure with tubular necrosis; M86.9 Osteomyelitis, unspecified; T87.44 Infection of amputation stump, left lower extremity; E11.52 Type 2 diabetes mellitus with diabetic peripheral angiopathy with gangrene; L97.429 Non-pressure chronic ulcer of left heel and midfoot with unspecified severity; D68.59 Other primary thrombophilia; E87.1 Hypo-osmolality and hyponatremia; D63.8 Anemia in other chronic diseases classified elsewhere; T87.54 Necrosis of amputation stump, left lower extremity; E11.65 Type 2 diabetes mellitus with hyperglycemia; E11.69 Type 2 diabetes mellitus with other specified complication; I11.0 Hypertensive heart disease with heart failure; E11.42 Type 2 diabetes mellitus with diabetic polyneuropathy; Z68.25 Body mass index [BMI] 25.0-25.9, adult; E11.621 Type 2 diabetes mellitus with foot ulcer; Z79.01 Long term (current) use of anticoagulants; Z79.4 Long term (current) use of insulin; Z74.09 Other reduced mobility; Z85.46 Personal history of malignant neoplasm of prostate; Z87.891 Personal history of nicotine dependence; Y83.5 Amputation of limb(s) as the cause of abnormal reaction of the patient, or of later complication, without mention of misadventure at the time of the procedure; K63.5 Polyp of colon; K57.90 Diverticulosis of intestine, part unspecified, without perforation or abscess without bleeding; K44.9 Diaphragmatic hernia without obstruction or gangrene; K21.9 Gastro-esophageal reflux disease without esophagitis; I70.0 Atherosclerosis of aorta; I27.20 Pulmonary hypertension, unspecified; I34.0 Nonrheumatic mitral (valve) insufficiency; G89.29 Other chronic pain; E87.5 Hyperkalemia; E78.5 Hyperlipidemia, unspecified
CPT/HCPCS: 36415; 70030-TC; 71045; 73620; 82378; 83550; 83735; 84100; 84153; 84443; 85018; 85025; 85730; 86850; 86900; 86901; 86920; 87040; 87070; 87077; 87086; 88342; 92526; 92610; 93005; 93307; 97110; 97530; A4217; A4649; A4663; G0378; J0290; J0690; J0696; J1170; J1610; J1815; J1940; J2001; J2250; J2405; J2543; J2765; J3010; J3370; J3475; J3480; J3490; J3590; J7030; J7042; J7050; J7060; J7120; P9016-BL; P9021

== ENCOUNTER 2018-12-08 10:49 | Inpatient (IN) | payer MEDICARE, MEDICAID ==
[~2018-12-08] VITALS: Ht 170.2 cm; Wt 63.5 kg
[~2018-12-08 10:49] MED LIST: ACET-73 PO; AMLO10TA7 PO; ASCO500T10 PO; ASPI81TA31 PO; ATOR40TA PO; BISA10SU11 RC; BLOO-360 IN; CARV12.52 PO; DOCU100C36 PO; FERR325T28 PO; FOLI1TAB16 PO; FURO-152 PO; HYDR-4354 PO; IBUP-1953 PO; IPRA3AMP23 IH; Insulin Glargine,Hum SQ; LISI10TA5 PO; MAGN400T6 PO; METF-442 PO; MULT-213 PO; PANT40TA2 PO; PANT40TA4 PO; POLY17PO4 PO; RIVA10TA PO; SULF1TAB48 PO; ZINC220C8 PO
[2018-12-08 11:24] LABS: BASOPHILS # (AUTO) 0.1 K/uL (0.0-8.0); BASOPHILS % (AUTO) 0.5 % (0.0-2.0); EOSINOPHILS % (AUTO) 0.1 % (0.0-7.0); HEMATOCRIT 29.7 % (36.7-47.1); HEMOGLOBIN 9.5 g/dL (12.5-16.3); LYMPHOCYTES # (AUTO) 1.4 K/uL (20.0-40.0); LYMPHOCYTES % (AUTO) 5.9 % (20.5-51.5); MEAN CORPUSCULAR HEMOGLOBIN 23.5 uug (23.8-33.4); MEAN CORPUSCULAR HGB CONC 32 g/dL (32.5-36.3); MEAN CORPUSCULAR VOLUME 73.6 fL (73.0-96.2); MONOCYTES # (AUTO) 0.9 K/uL (2.0-10.0); NEUTROPHILS # (AUTO) 20.9 K/uL (1.8-8.9); NEUTROPHILS % (AUTO) 89.5 % (38.5-71.5); PLATELET COUNT (AUTO) 514 K/uL (152-348); RED BLOOD CELL COUNT(AUTO) 4.03 MIL/uL (4.06-5.63); WHITE BLOOD COUNT (AUTO) 23.3 K/uL (3.6-10.2)
[2018-12-08 11:25] LABS: CARBON DIOXIDE 25 mmol/L (21-32); CHLORIDE 96 mmol/L (98-107); CREATININE 0.9 mg/dL (0.6-1.3); GLUCOSE 204 mg/dL (74-106); POTASSIUM 4.7 mmol/L (3.5-5.1); UREA NITROGEN, BLOOD 33 mg/dL (7-18)
[2018-12-08] MEDS ORDERED: PIPERACILLIN/TAZOBACTAM/D5W 50 ML IV ONE (11:37)
[2018-12-08] MEDS ORDERED: VANCOMYCIN IV 200 ML ONE (11:41)
[2018-12-08 11:43] LABS: BAND % (MANUAL) 1 % (0-10); LYMPHOCYTES % (MANUAL) 7 % (20-40); METAMYELOCYTES % 1 % (0-1); MONOCYTES % (MANUAL) 2 % (2-10); NEUTROPHILS % (MANUAL) 89 % (42-75)
[2018-12-08] MEDS ORDERED: VANCOMYCIN IV 1,000 MG in IV DEXTROSE 5% 250 ML IV ONE (11:45)
[2018-12-08] MEDS ORDERED: PIPERACILLIN SODIUM/TAZOBACTAM 3.375 G in IV DEXTROSE 5% 50 ML IV ONE (11:45)
[2018-12-08] MEDS ORDERED: INSU100V7 SQ (12:03)
[2018-12-08] MEDS ORDERED: MAGN400O6 PO (12:03)
[2018-12-08] MEDS ORDERED: FURO20TA4 PO (12:03)
[2018-12-08] MEDS ORDERED: CARV12.52 PO (12:03)
[2018-12-08] MEDS ORDERED: LISI10TA5 PO (12:03)
[2018-12-08] MEDS ORDERED: IBUP-1953 PO (12:03)
[2018-12-08] MEDS ORDERED: NA P133E RC (12:03)
--- NOTE | 2018-12-08 12:10 | NUR ---
pt transfered to floorin stable condition. pt remained calm the whole er stay, limited japanese.pt unable to provide urine in er.
[2018-12-08] MEDS ORDERED: FLEET ENEMA 133 ML BOTTLE RC PRN (12:15)
[2018-12-08] MEDS ORDERED: DEXTROSE 50% 50 ML DISP.SYRIN IV PRN (12:15)
[2018-12-08] MEDS ORDERED: MAGNESIUM HYDROXIDE 30 ML LIQUID UDC PO PRN (12:15)
[2018-12-08] MEDS ORDERED: BISACODYL 10 MG SUPP.RECT RC PRN (12:15)
[2018-12-08 12:20] VITALS: BP 121/54
--- NOTE | 2018-12-08 12:20 | NUR ---
Nurse Notes: Patient was received from Emergency room, alert and oriented, speaks luxembourgish. stated pain level is 10/10. orders are being placed in computer. left AKA with infection. Belonging list completed by CAREER SPECIALIST, patient to be admitted. Vancomycin was started in the ER, completing in 45 minutes
[2018-12-08] MEDS ORDERED: Z GUARD REMEDY PASTE 57 GM TUBE TOP PRN (13:15)
[2018-12-08] MEDS ORDERED: ACETAMINOPHEN 325 MG TABLET PO PRN (13:15)
[2018-12-08] MEDS ORDERED: ONDANSETRON 4 MG/2 ML VIAL IV PRN (13:15)
[2018-12-08] MEDS ORDERED: ZOLPIDEM 5 MG TABLET PO PRN (13:15)
--- NOTE | 2018-12-08 14:00 | NUR ---
Nurse Notes: wound care nurse Liz at bedside. left AKA checked by LOREE Hill, and was dressed with dry dressing. photos taken, sacral is intact, small old healed scar. No break in sacral.
--- NOTE | 2018-12-08 14:21 | NUR ---
WOUND CARE CONSULT: PT PRESENTS WITH SACRAL SCAR AND LEFT LOWER LEG AMPUTATION SITE WITH BLACK NECROTIC TISSUE AND SMALL AREA WITH SEROSANGUINOUS DRAINAGE BETWEEN GALLO. RECOMMEND SURGICAL FOLLOWUP. RECOMMENDATIONS MADE FOR SKIN PROTECTION AND WOUND CARE. DISCUSSED WITH NURSING STAFF. PT HAS LOST WEIGHT RECENTLY PER RELATIVE AT BEDSIDE. DIETARY CONSULT IN PLACE. WILL SEE PRN. ACUÑA IN AGREEMENT WITH PLAN OF CARE. Addendum: 12/08/18 at 1423 by RYAN STAHL RN Amended: Links added.
--- NOTE | 2018-12-08 14:37 | NUR ---
PER RYAN DIAMOND WAS NOTIFIED OF SURGICAL CONSULT AND WILL SEE PT.
[2018-12-08] MEDS: IV NS 1000 ML 1,000 ML IV PRN (14:38)
[2018-12-08] MEDS: MAGNESIUM HYDROXIDE 30 ML LIQUID UDC PO PRN (14:52)
[2018-12-08] MEDS: HYDROCODONE/APAP 5-325MG TABLET PO PRN (14:52)
[2018-12-08 16:00] VITALS: BP 132/66
--- NOTE | 2018-12-08 16:34 | NUR ---
Clinical Pharmacy Note: Vancomycin Dosing per Pharmacy Subjective: Vancomycin IV to start on this 78 yo male patient for infected BKA Objective: BUN 33/Scr 0.9 WBC 23.3 Temperature 98.3 ht 170 cm wt 53 kg Assessment/Plan: Patient received vanco 1gm IVPB x1 in ED today at 1200. Will start vancomycin 750mg IVPB Q21hr for a predicted vancomycin steady state trough level of 16.4 mcg/ml. 1st dose tomorrow at 0900. Will draw a vancomycin trough level prior to the 4th dose of vancomycin (not ordered yet). Will monitor renal function and adjust vancomycin dose, if needed, should renal function change significantly. Will follow daily.
--- NOTE | 2018-12-08 17:00 | NUR ---
Nurse Notes: report given to Rakesh RN, nurse from ICU taking over care of patient. Milk of Magnesia given to patient, last BM at [facility] was on 12/04. they also confirm the flu and pneumonia date, given in June 2018.
[2018-12-08] MEDS: BLOOD SUGAR DIAGNOSTIC 1 EACH STRIP VI SCH ×2 (17:30→20:31)
[2018-12-08] MEDS: CARVEDILOL 12.5 MG TABLET PO SCH (17:33)
[2018-12-08] MEDS: FERROUS SULFATE 325 MG TABEC PO SCH (17:33)
[2018-12-08] MEDS: DOCUSATE SODIUM 100 MG CAPSULE PO SCH (17:33)
[2018-12-08] MEDS: INSULIN REGULAR, HUMAN 300 UNIT/3 ML VIAL SQ PRN (17:34)
[2018-12-08 20:05] VITALS: BP 127/56
[2018-12-08] MEDS: HYDROCODONE/APAP 10-325 MG TABLET PO PRN (20:17)
[2018-12-08] MEDS: ATORVASTATIN 40 MG TABLET PO SCH (20:17)
[2018-12-08] MEDS: LISINOPRIL 10 MG TABLET PO SCH (20:17)
[2018-12-08] MEDS: INSULIN GLARGINE,HUM 300 UNITS/3 ML CARTRIDGE SQ SCH (20:32)
[2018-12-08] MEDS: INSULIN REGULAR, HUMAN 300 UNITS/3 ML VIAL SQ PRN (20:33)
[2018-12-08] MEDS: PIPERACILLIN/TAZOBACTAM/D5W 3.375 G in PREMIXED 1 EACH IV SCH (21:42)
[2018-12-08] MEDS: LORAZEPAM 2 MG/1 ML VIAL IV PRN (23:40)
[2018-12-09] MEDS: IV NS 1000 ML 1,000 ML IV PRN (05:55)
[2018-12-09] MEDS: PIPERACILLIN/TAZOBACTAM/D5W 3.375 G in PREMIXED 1 EACH IV SCH ×3 (06:06→21:06)
[2018-12-09] MEDS: PANTOPRAZOLE SODIUM 40 MG TABLET.DR PO SCH (06:11)
[2018-12-09 06:26] VITALS: BP 153/55
[2018-12-09] MEDS: BLOOD SUGAR DIAGNOSTIC 1 EACH STRIP VI SCH ×4 (06:33→21:00)
[2018-12-09 07:39] LABS: BASOPHILS # (AUTO) 0.1 K/uL (0.0-8.0); BASOPHILS % (AUTO) 0.3 % (0.0-2.0); EOSINOPHILS % (AUTO) 0.2 % (0.0-7.0); HEMATOCRIT 26.3 % (36.7-47.1); HEMOGLOBIN 8.6 g/dL (12.5-16.3); LYMPHOCYTES # (AUTO) 1.7 K/uL (20.0-40.0); LYMPHOCYTES % (AUTO) 8.2 % (20.5-51.5); MEAN CORPUSCULAR HEMOGLOBIN 24.1 uug (23.8-33.4); MEAN CORPUSCULAR HGB CONC 33 g/dL (32.5-36.3); MEAN CORPUSCULAR VOLUME 73.5 fL (73.0-96.2); MONOCYTES # (AUTO) 0.9 K/uL (2.0-10.0); MONOCYTES % (AUTO) 4.6 % (0.0-11.0); NEUTROPHILS # (AUTO) 17.8 K/uL (1.8-8.9); NEUTROPHILS % (AUTO) 86.7 % (38.5-71.5); PLATELET COUNT (AUTO) 413 K/uL (152-348); RED BLOOD CELL COUNT(AUTO) 3.58 MIL/uL (4.06-5.63); WHITE BLOOD COUNT (AUTO) 20.5 K/uL (3.6-10.2)
[2018-12-09 07:45] LABS: ALANINE AMINOTRANSFERASE 12 U/L (16-63); ALKALINE PHOSPHATASE 148 U/L (50-136); ASPARTATE AMINOTRANSFERASE 19 U/L (15-37); BILIRUBIN,TOTAL 0.2 mg/dL (0.2-1.0); CARBON DIOXIDE 25 mmol/L (21-32); CHLORIDE 100 mmol/L (98-107); CHOLESTEROL 92 mg/dL (<200); CREATININE 0.7 mg/dL (0.6-1.3); GLUCOSE 161 mg/dL (74-106); HDL CHOLESTEROL 37 mg/dL (40-60); MAGNESIUM 1.8 mg/dL (1.8-2.4); PHOSPHOROUS 2.1 mg/dL (2.5-4.9); TOTAL PROTEIN, SERUM 6.7 g/dL (6.4-8.2); TRIGLYCERIDES 46 MG/DL (30-150); UREA NITROGEN, BLOOD 26 mg/dL (7-18)
[2018-12-09] MEDS ORDERED: NEUTRA PHOS PACKET PO ONE (08:15)
[2018-12-09 08:38] LABS: LYMPHOCYTES % (MANUAL) 8 % (20-40); MONOCYTES % (MANUAL) 2 % (2-10); NEUTROPHILS % (MANUAL) 90 % (42-75)
[2018-12-09] MEDS: CARVEDILOL 12.5 MG TABLET PO SCH ×2 (08:48→18:16)
[2018-12-09] MEDS: MAGNESIUM OXIDE 400 MG TABLET PO SCH (08:49)
[2018-12-09] MEDS: FUROSEMIDE 20 MG TABLET PO SCH (08:49)
[2018-12-09] MEDS: FERROUS SULFATE 325 MG TABEC PO SCH ×2 (08:49→17:41)
[2018-12-09] MEDS: DOCUSATE SODIUM 100 MG CAPSULE PO SCH ×2 (08:49→17:41)
[2018-12-09] MEDS: ASPIRIN 81 MG TAB.CHEW PO SCH (08:49)
[2018-12-09] MEDS: MULTIVIT, IRON, MIN NO. 8, FA TABLET PO SCH (08:49)
[2018-12-09] MEDS: FOLIC ACID 1 MG TABLET PO SCH (08:50)
[2018-12-09] MEDS: AMLODIPINE 10 MG TABLET PO SCH (08:50)
[2018-12-09] MEDS: LISINOPRIL 10 MG TABLET PO SCH ×2 (08:50→20:54)
[2018-12-09] MEDS: MIRALAX 17 GM POWD.PACK PO SCH (08:51)
[2018-12-09] MEDS: VANCOMYCIN IV 750 MG in IV DEXTROSE 5% 250 ML IV SCH (08:57)
[2018-12-09] MEDS ORDERED: ASCORBIC ACID 500 MG TABLET PO SCH (09:00)
[2018-12-09] MEDS ORDERED: Medication Not On Formulary EA (Multivitamins W-Minerals (Multivitamin With Minerals) 1 PO SCH (09:00)
[2018-12-09] MEDS ORDERED: RIVAROXABAN 10 MG TABLET PO SCH (09:00)
--- NOTE | 2018-12-09 11:34 | NUR ---
Nursing Note: Discussed with infectious disease mikayla , wound care isabela and attending HOME HEALTH MANAGER phuong plan for patient. Patients order for wound culture to be changed to intraop, minimal drainage noted on Wound care today. Surgery planned but not scheduled.
[2018-12-09] MEDS: INSULIN REGULAR, HUMAN 300 UNIT/3 ML VIAL SQ PRN ×2 (11:44→16:57)
[2018-12-09 12:00] VITALS: BP 141/60
--- NOTE | 2018-12-09 12:32 | NUR ---
Clinical Pharmacy Note: Vancomycin Dosing per Pharmacy Subjective: Vancomycin IV to continue on this 78 yo male patient for infected BKA Objective: [id number]/Scr 0.7 WBC 20.5 Temperature 98.2 ht 170 cm wt 53 kg Assessment/Plan: Patient received vanco 1gm IVPB x1 in ED today at 1200. Will start vancomycin 750mg IVPB Q21hr for a predicted vancomycin steady state trough level of 16.4 mcg/ml. 2nd dose tomorrow at 0600. Will draw a vancomycin trough level prior to the 4th dose of vancomycin (not ordered yet). Will monitor renal function and adjust vancomycin dose, if needed, should renal function change significantly. Will follow daily.
[2018-12-09 16:11] VITALS: BP 154/63
[2018-12-09] MEDS: PROTEIN SUPPLEMENT (PROSTAT) 30 ML LIQUID PO SCH (17:42)
[2018-12-09] MEDS: LORAZEPAM 2 MG/1 ML VIAL IV PRN (17:49)
--- NOTE | 2018-12-09 19:30 | NUR ---
Received patient asleep in bed with air mattress in place. Patient is arousable and follows commands. On room air, tolerated. With IV access on the left forearm to ongoing IV fluid, infusing well. Noted with Left BKA stump with rosie, noted with possibly necrotic tissue on surrounding area. Patient is for surgery tomorrow, consent for surgery and possible blood transfusion attached to chart. Bed in low position, locked, side rails up for safety. Will continue to monitor.
--- NOTE | 2018-12-09 20:00 | NUR ---
Performed straight catheterization to obtain urine sample for sending to lab as ordered by MD. Noted patient removed the wound dressing, redressed left BKA stump. Will continue to monitor.
[2018-12-09 20:39] LABS: *BILIRUBIN,URIN NEGATIVE (NEGATIVE); *BLOOD, URINE 1+ (NEGATIVE); *CLARITY,URINE CLEAR (CLEAR); *COLOR,URINE YELLOW (YELLOW); *KETONES,URINE NEGATIVE (NEGATIVE); *UROBILINOGEN,URINE 0.2 E.U./dl (NORMAL); LEUKOCYTE ESTERASE ,URINE NEGATIVE (NEGATIVE); NITRITE, URINE NEGATIVE (NEGATIVE); UGLUCOSE NEGATIVE (NEGATIVE)
[2018-12-09 20:49] LABS: COARSE GRANULAR CASTS,URINE 0-3 /LPF; MUCUS,URINE FEW /LPF (0-FEW); WBC,URINE 0-3 /HPF (0-3)
[2018-12-09] MEDS: ATORVASTATIN 40 MG TABLET PO SCH (20:53)
[2018-12-09] MEDS: MUPIROCIN 2% OINT 22 GM TUBE NS SCH (20:53)
[2018-12-09] MEDS: INSULIN GLARGINE,HUM 300 UNITS/3 ML CARTRIDGE SQ SCH (21:02)
[2018-12-09] MEDS: INSULIN REGULAR, HUMAN 300 UNITS/3 ML VIAL SQ PRN (21:03)
[2018-12-09 22:01] VITALS: BP 154/61
[2018-12-10] VITALS (7 sets, daily range): BP systolic 122–163; BP diastolic 58–70
[2018-12-10] MEDS: IV NS 1000 ML 1,000 ML IV PRN (00:12)
[2018-12-10] MEDS: PIPERACILLIN/TAZOBACTAM/D5W 3.375 G in PREMIXED 1 EACH IV SCH ×3 (05:00→22:15)
[2018-12-10] MEDS: VANCOMYCIN IV 750 MG in IV DEXTROSE 5% 250 ML IV SCH (05:34)
--- NOTE | 2018-12-10 05:56 | NUR ---
Patient slept well throughout the night. No complaints were made. Noted for surgery this afternoon, kept nothing per orem after midnight. Per blood bank blood is ready in case it will be needed to be transfused during surgery. Attended all needs. Will continue to monitor.
[2018-12-10] MEDS: PANTOPRAZOLE SODIUM 40 MG TABLET.DR PO SCH (06:10)
[2018-12-10 06:25] LABS: BASOPHILS % (AUTO) 0.2 % (0.0-2.0); EOSINOPHILS % (AUTO) 0.1 % (0.0-7.0); HEMOGLOBIN 9.1 g/dL (12.5-16.3); LYMPHOCYTES # (AUTO) 1.7 K/uL (20.0-40.0); LYMPHOCYTES % (AUTO) 8.4 % (20.5-51.5); MEAN CORPUSCULAR HGB CONC 33 g/dL (32.5-36.3); MEAN CORPUSCULAR VOLUME 73.6 fL (73.0-96.2); NEUTROPHILS # (AUTO) 17.6 K/uL (1.8-8.9); NEUTROPHILS % (AUTO) 86.3 % (38.5-71.5); PLATELET COUNT (AUTO) 433 K/uL (152-348); WHITE BLOOD COUNT (AUTO) 20.4 K/uL (3.6-10.2)
[2018-12-10] MEDS: BLOOD SUGAR DIAGNOSTIC 1 EACH STRIP VI SCH ×4 (06:34→21:05)
[2018-12-10 06:46] LABS: ALANINE AMINOTRANSFERASE 20 U/L (16-63); ALKALINE PHOSPHATASE 156 U/L (50-136); ASPARTATE AMINOTRANSFERASE 28 U/L (15-37); BILIRUBIN,TOTAL 0.3 mg/dL (0.2-1.0); CARBON DIOXIDE 28 mmol/L (21-32); CHLORIDE 102 mmol/L (98-107); CREATININE 0.6 mg/dL (0.6-1.3); GLUCOSE 144 mg/dL (74-106); MAGNESIUM 1.7 mg/dL (1.8-2.4); PHOSPHOROUS 2.6 mg/dL (2.5-4.9); POTASSIUM 3.7 mmol/L (3.5-5.1); TOTAL PROTEIN, SERUM 6.7 g/dL (6.4-8.2); UREA NITROGEN, BLOOD 19 mg/dL (7-18)
[2018-12-10] MEDS ORDERED: IV NS 1000 ML 1,000 ML IV PRN (07:00)
--- NOTE | 2018-12-10 07:20 | NUR ---
RECEIVED PATIENT RESTING IN BED SLEEPING, NO DISTRESS NOTED AT THIS TIME. BED IN LOWEST POSITION, SIDE RAILS UP X2, CALL LIGHT WITHIN REACH. WILL CONTINUE TO MONITOR.
[2018-12-10] MEDS: PROTEIN SUPPLEMENT (PROSTAT) 30 ML LIQUID PO SCH ×3 (08:00→17:00)
[2018-12-10] MEDS: AMLODIPINE 10 MG TABLET PO SCH (08:52)
[2018-12-10] MEDS: LISINOPRIL 10 MG TABLET PO SCH ×2 (08:53→20:50)
[2018-12-10] MEDS: FUROSEMIDE 20 MG TABLET PO SCH (08:53)
[2018-12-10] MEDS: CARVEDILOL 12.5 MG TABLET PO SCH ×2 (08:53→18:00)
[2018-12-10] MEDS: MUPIROCIN 2% OINT 22 GM TUBE NS SCH ×2 (08:56→20:51)
[2018-12-10] MEDS: DOCUSATE SODIUM 100 MG CAPSULE PO SCH ×2 (08:57→17:00)
[2018-12-10] MEDS: ASPIRIN 81 MG TAB.CHEW PO SCH (08:57)
[2018-12-10] MEDS: FERROUS SULFATE 325 MG TABEC PO SCH ×2 (08:57→17:00)
[2018-12-10] MEDS: MIRALAX 17 GM POWD.PACK PO SCH (08:58)
[2018-12-10] MEDS: MULTIVIT, IRON, MIN NO. 8, FA TABLET PO SCH (08:58)
[2018-12-10] MEDS: ZINC SULFATE 220 MG CAPSULE PO SCH (08:58)
[2018-12-10] MEDS: ASCORBIC ACID 500 MG TABLET PO SCH (08:58)
[2018-12-10] MEDS: MAGNESIUM OXIDE 400 MG TABLET PO SCH (08:58)
[2018-12-10] MEDS: FOLIC ACID 1 MG TABLET PO SCH (08:58)
--- NOTE | 2018-12-10 14:41 | NUR ---
Clinical Pharmacy Note: Vancomycin Dosing per Pharmacy Subjective: Vancomycin IV to continue on this 78 yo male patient for infected BKA Objective: BUN 19 /Scr 0.6 WBC 20.4 Temperature 98.9 ht 170 cm wt 53 kg Assessment/Plan: Will continue vancomycin 750mg IVPB Q21hr for a predicted vancomycin steady state trough level of 16.4 mcg/ml. 3rd dose tomorrow at 0300. Will draw a vancomycin trough level prior to the 4th dose of vancomycin (not ordered yet). Will monitor renal function and adjust vancomycin dose, if needed, should renal function change significantly. Will follow daily.
--- NOTE | 2018-12-10 15:00 | NUR ---
PATIENT SENT TO OR. ACCOMPANIED BY OR NURSES, PATIENT IN STABLE CONDITION.
[2018-12-10] MEDS ORDERED: POLYMYXIN B SULFATE 500,000 UNITS, BACITRACIN 50,000 UNITS, NORMAL SALINE 20 ML MC ONE ×3 (15:30)
[2018-12-10] MEDS ORDERED: MAGNESIUM SULFATE/D5W 100 ML IV SCH (15:30)
[2018-12-10] MEDS ORDERED: BUPIVACAINE PF 0.5% 30 ML VIAL ONE (15:38)
--- NOTE | 2018-12-10 16:30 | NUR ---
UNABLE O TAKE PATIENT BLOOD SUGAR DUE TO PATIENT SENT TO OR.
[2018-12-10] MEDS ORDERED: IV NORMAL SALINE 1000 ML BAG IV ONE ×2 (16:52)
[2018-12-10] MEDS ORDERED: ETOMIDATE 20 MG/10 ML VIAL IV ONE (16:52)
[2018-12-10] MEDS ORDERED: PROPOFOL 200 MG/20 ML BOTTLE IV ONE (16:52)
[2018-12-10] MEDS ORDERED: SEVOFLURANE 250 ML BOTTLE IH ONE (16:52)
[2018-12-10] MEDS ORDERED: ONDANSETRON 4 MG/2 ML VIAL IV ONE (16:52)
[2018-12-10] MEDS ORDERED: METOCLOPRAMIDE HCL 10 MG/2 ML VIAL IV ONE (16:52)
[2018-12-10] MEDS ORDERED: LIDOCAINE HCL-MPF 1% 5 ML VIAL MC ONE (16:52)
[2018-12-10] MEDS ORDERED: FENTANYL CITRATE 100 MCG/2 ML AMPUL ONE (17:10)
--- NOTE | 2018-12-10 18:20 | NUR ---
RECEIVED PATIENT FROM OR, AWAKE ALERT AND ORIENTED X2 CONFUSED AT TIMES. RECEIVED REPORT FROM OR NURSE ENOCH. PATIENT HAS SUNNI DRAIN WITH 10CC OF SEROSANGUINEOUS FLUID. PATIENT REPORTING PAIN, WILL CONTINUE TO MONITOR. VITAL SIGNS WNL.
[2018-12-10] MEDS: HYDROMORPHONE 1 MG/1 ML DISP.SYRIN IV PRN (18:34)
[2018-12-10] MEDS: MAGNESIUM SULFATE/D5W 100 ML IV SCH ×2 (18:36→20:51)
--- NOTE | 2018-12-10 19:30 | NUR ---
Received patient awake in bed, not in any form of distress. Noted S/P Left above knee amputation with intact dressing on site to caroline rachel drain with serosanguineous output. Post operative site kept elevated with a pillow. Still with air mattress in place. Bed in low position, locked, side rails up x 2. Noise and lights subdued. Will continue to monitor.
[2018-12-10] MEDS: ATORVASTATIN 40 MG TABLET PO SCH (20:50)
[2018-12-10] MEDS: INSULIN REGULAR, HUMAN 300 UNITS/3 ML VIAL SQ PRN (21:01)
[2018-12-10] MEDS: INSULIN GLARGINE,HUM 300 UNITS/3 ML CARTRIDGE SQ SCH (21:04)
[2018-12-10 22:10] LABS: *BILIRUBIN,URIN NEGATIVE (NEGATIVE); *BLOOD, URINE NEGATIVE (NEGATIVE); *CLARITY,URINE CLEAR (CLEAR); *COLOR,URINE YELLOW (YELLOW); *KETONES,URINE NEGATIVE (NEGATIVE); *UROBILINOGEN,URINE 0.2 E.U./dl (NORMAL); LEUKOCYTE ESTERASE ,URINE NEGATIVE (NEGATIVE); NITRITE, URINE NEGATIVE (NEGATIVE); UGLUCOSE NEGATIVE (NEGATIVE)
[2018-12-10 22:19] LABS: WBC,URINE 0-3 /HPF (0-3)
[2018-12-10 22:20] LABS: MUCUS,URINE FEW /LPF (0-FEW)
[2018-12-11] MEDS: VANCOMYCIN IV 750 MG in IV DEXTROSE 5% 250 ML IV SCH (03:03)
[2018-12-11] MEDS: HYDROMORPHONE 1 MG/1 ML DISP.SYRIN IV PRN (03:11)
[2018-12-11] MEDS: PIPERACILLIN/TAZOBACTAM/D5W 3.375 G in PREMIXED 1 EACH IV SCH ×3 (05:30→21:31)
[2018-12-11 05:34] VITALS: BP 133/66
[2018-12-11] MEDS: PANTOPRAZOLE SODIUM 40 MG TABLET.DR PO SCH (06:03)
[2018-12-11] MEDS: HYDROCODONE/APAP 5-325MG TABLET PO PRN ×4 (06:04→21:29)
[2018-12-11 06:25] LABS: BASOPHILS % (AUTO) 0.2 % (0.0-2.0); EOSINOPHILS # (AUTO) 0.1 K/uL (0.0-0.7); EOSINOPHILS % (AUTO) 0.9 % (0.0-7.0); HEMATOCRIT 24.5 % (36.7-47.1); HEMOGLOBIN 8.1 g/dL (12.5-16.3); LYMPHOCYTES # (AUTO) 1.5 K/uL (20.0-40.0); LYMPHOCYTES % (AUTO) 10.8 % (20.5-51.5); MEAN CORPUSCULAR HEMOGLOBIN 24.5 uug (23.8-33.4); MEAN CORPUSCULAR HGB CONC 33 g/dL (32.5-36.3); MEAN CORPUSCULAR VOLUME 74.1 fL (73.0-96.2); MONOCYTES # (AUTO) 0.7 K/uL (2.0-10.0); MONOCYTES % (AUTO) 4.9 % (0.0-11.0); NEUTROPHILS # (AUTO) 11.3 K/uL (1.8-8.9); NEUTROPHILS % (AUTO) 83.2 % (38.5-71.5); PLATELET COUNT (AUTO) 392 K/uL (152-348); RED BLOOD CELL COUNT(AUTO) 3.31 MIL/uL (4.06-5.63); WHITE BLOOD COUNT (AUTO) 13.6 K/uL (3.6-10.2)
[2018-12-11 06:56] LABS: IRON, SERUM 12 ug/dL (50-175)
--- NOTE | 2018-12-11 07:10 | NUR ---
Received patient alert and oriented and awake. no s/s of acute distress noted, no c/o pain at this time . patient is s/p surgery , will continue to monitor. provide safety at all times , will continue to monitor and continue treatment plan.
[2018-12-11 07:16] LABS: CARBON DIOXIDE 28 mmol/L (21-32); CHLORIDE 103 mmol/L (98-107); CREATININE 0.7 mg/dL (0.6-1.3); FERRITIN 707 ng/mL (26-388); GLUCOSE 195 mg/dL (74-106); MAGNESIUM 1.9 mg/dL (1.8-2.4); POTASSIUM 3.3 mmol/L (3.5-5.1); UREA NITROGEN, BLOOD 15 mg/dL (7-18)
[2018-12-11] MEDS: BLOOD SUGAR DIAGNOSTIC 1 EACH STRIP VI SCH ×4 (07:19→21:52)
[2018-12-11 07:49] LABS: LYMPHOCYTES % (MANUAL) 12 % (20-40); NEUTROPHILS % (MANUAL) 83 % (42-75)
[2018-12-11 07:50] LABS: MONOCYTES % (MANUAL) 5 % (2-10)
[2018-12-11] MEDS: CARVEDILOL 12.5 MG TABLET PO SCH ×2 (08:30→17:06)
[2018-12-11] MEDS: MUPIROCIN 2% OINT 22 GM TUBE NS SCH ×2 (08:30→21:53)
[2018-12-11] MEDS: MAGNESIUM OXIDE 400 MG TABLET PO SCH (08:31)
[2018-12-11] MEDS: ASPIRIN 81 MG TAB.CHEW PO SCH (08:31)
[2018-12-11] MEDS: FOLIC ACID 1 MG TABLET PO SCH (08:31)
[2018-12-11] MEDS: ZINC SULFATE 220 MG CAPSULE PO SCH (08:31)
[2018-12-11] MEDS: FUROSEMIDE 20 MG TABLET PO SCH (08:31)
[2018-12-11] MEDS: LISINOPRIL 10 MG TABLET PO SCH ×2 (08:31→21:29)
[2018-12-11] MEDS: FERROUS SULFATE 325 MG TABEC PO SCH ×2 (08:31→17:05)
[2018-12-11] MEDS: DOCUSATE SODIUM 100 MG CAPSULE PO SCH ×2 (08:32→17:05)
[2018-12-11] MEDS: ASCORBIC ACID 500 MG TABLET PO SCH (08:32)
[2018-12-11] MEDS: MIRALAX 17 GM POWD.PACK PO SCH (08:32)
[2018-12-11] MEDS: AMLODIPINE 10 MG TABLET PO SCH (08:32)
[2018-12-11] MEDS: PROTEIN SUPPLEMENT (PROSTAT) 30 ML LIQUID PO SCH ×3 (08:52→17:06)
[2018-12-11] MEDS: INSULIN REGULAR, HUMAN 300 UNIT/3 ML VIAL SQ PRN ×3 (08:52→17:28)
[2018-12-11] MEDS: MULTIVIT, IRON, MIN NO. 8, FA TABLET PO SCH (09:18)
[2018-12-11] MEDS ORDERED: POTASSIUM CHLORIDE 20 MEQ TAB.PRT.SR PO ONE (09:30)
[2018-12-11 11:15] VITALS: BP 127/70
--- NOTE | 2018-12-11 13:32 | NUR ---
Clinical Pharmacy Note: Vancomycin Dosing per Pharmacy Subjective: Vancomycin IV to continue on this 78 yo male patient for infected BKA Objective: BUN 15 /Scr 0.7 WBC 13.6 Temperature 98 ht 170 cm wt 53 kg trough pending tonight at 2330 Assessment/Plan: Will continue vancomycin 750mg IVPB Q21hr for a predicted vancomycin steady state trough level of 16.4 mcg/ml. Trough due before 4th scheduled dose, ordered for tonight at 2330. RN endorsed to hold dose if Tr >20. Will check in am and adjust as needed. Will follow
[2018-12-11 15:01] VITALS: BP 128/54
--- NOTE | 2018-12-11 18:20 | NUR ---
Patient alert and oriented x4 , able to make needs known, patient is s/p above the knee amputation with caroline-rachel drained 25ml of blood, treatment done, no s/s of infection noted, c/o pain and prn pain medications given. no acute distress noted. kept clean and dry at all times. iv intact and patent, safety and and comfort provided at all times. call light within reached, will continue to monitor and continue treatment.
[2018-12-11 20:00] VITALS: BP 111/52
--- NOTE | 2018-12-11 20:00 | NUR ---
RECEIVED PATIENT AWAKE AND SITTING UP IN BED. PATIENT IS ALERT AND ORIENTED X3 AND ABLE TO VERBALIZE NEEDS. PATIENT HAS NO COMPLAINTS OF PAIN OR DISCOMFORT AT THIS TIME. SURGICAL DRESSING IS DRY AND INTACT. SHIN/THOMPSON DRAIN IS EMPTY WITH A REPORTED 40CC DRAINAGE ON AM SHIFT. ALL SAFETY AND FALL PRECAUTION MEASURES ARE IN PLACE. CALL LIGHT AND PERSONAL ITEMS ARE WITHIN REACH AT ALL TIMES. WILL CONTINUE TO MONITOR.
[2018-12-11] MEDS ORDERED: ENOXAPARIN SODIUM 40 MG/0.4 ML DISP.SYRIN SQ SCH (21:00)
[2018-12-11] MEDS: ATORVASTATIN 40 MG TABLET PO SCH (21:29)
[2018-12-11] MEDS: INSULIN GLARGINE,HUM 300 UNITS/3 ML CARTRIDGE SQ SCH (21:48)
[2018-12-11] MEDS: INSULIN REGULAR, HUMAN 300 UNITS/3 ML VIAL SQ PRN (21:51)
[2018-12-12] MEDS: VANCOMYCIN IV 750 MG in IV DEXTROSE 5% 250 ML IV SCH (00:06)
--- NOTE | 2018-12-12 01:07 | NUR ---
GAVE REPORT TO NURSE TAKING OVER PATIENT'S CARE
[2018-12-12 05:46] VITALS: BP 121/53
[2018-12-12] MEDS: PIPERACILLIN/TAZOBACTAM/D5W 3.375 G in PREMIXED 1 EACH IV SCH ×3 (06:00→21:54)
[2018-12-12] MEDS: PANTOPRAZOLE SODIUM 40 MG TABLET.DR PO SCH (06:00)
[2018-12-12] MEDS: HYDROCODONE/APAP 10-325 MG TABLET PO PRN ×2 (06:01→16:43)
[2018-12-12] MEDS: MAGNESIUM HYDROXIDE 30 ML LIQUID UDC PO PRN (06:06)
[2018-12-12] MEDS: BLOOD SUGAR DIAGNOSTIC 1 EACH STRIP VI SCH ×4 (06:44→21:21)
[2018-12-12 06:52] LABS: EOSINOPHILS # (AUTO) 0.2 K/uL (0.0-0.7); LYMPHOCYTES # (AUTO) 1.7 K/uL (20.0-40.0)
[2018-12-12 06:55] LABS: ALANINE AMINOTRANSFERASE 34 U/L (16-63); ALKALINE PHOSPHATASE 125 U/L (50-136); ASPARTATE AMINOTRANSFERASE 33 U/L (15-37); BILIRUBIN,TOTAL 0.2 mg/dL (0.2-1.0); CARBON DIOXIDE 28 mmol/L (21-32); CHLORIDE 103 mmol/L (98-107); CREATININE 0.8 mg/dL (0.6-1.3); GLUCOSE 212 mg/dL (74-106); MAGNESIUM 1.9 mg/dL (1.8-2.4); POTASSIUM 4.1 mmol/L (3.5-5.1); TOTAL PROTEIN, SERUM 5.6 g/dL (6.4-8.2); UREA NITROGEN, BLOOD 28 mg/dL (7-18)
[2018-12-12 07:00] LABS: BASOPHILS % (AUTO) 0.3 % (0.0-2.0); EOSINOPHILS % (AUTO) 2.3 % (0.0-7.0); LYMPHOCYTES % (AUTO) 16.9 % (20.5-51.5); MEAN CORPUSCULAR HEMOGLOBIN 24.8 uug (23.8-33.4); MEAN CORPUSCULAR HGB CONC 33 g/dL (32.5-36.3); MEAN CORPUSCULAR VOLUME 74.3 fL (73.0-96.2); MONOCYTES # (AUTO) 0.7 K/uL (2.0-10.0); MONOCYTES % (AUTO) 6.6 % (0.0-11.0); NEUTROPHILS # (AUTO) 7.3 K/uL (1.8-8.9); NEUTROPHILS % (AUTO) 73.9 % (38.5-71.5); PLATELET COUNT (AUTO) 324 K/uL (152-348); RED BLOOD CELL COUNT(AUTO) 2.99 MIL/uL (4.06-5.63)
[2018-12-12 07:02] LABS: WHITE BLOOD COUNT (AUTO) 9.9 K/uL (3.6-10.2)
--- NOTE | 2018-12-12 07:03 | NUR ---
Lab called for critical lab value of albumin = 1.2 and of Hemoglobin and Hematocrit. Hemoglobin = 7.4 and Hematocrit = 22.2. Will call doctor to report critical lab value.
[2018-12-12 07:05] LABS: HEMOGLOBIN 7.4 g/dL (12.5-16.3)
--- NOTE | 2018-12-12 07:07 | NUR ---
Called [facility] for doctor merchandise execution leader to report critical lab value of albumin and H&H. [facility] paged Pako and he will get back to [facility]. Awaiting phone call from doctor. Will endorse to AM nurse critical lab values.
[2018-12-12 07:08] LABS: HEMATOCRIT 22.2 % (36.7-47.1)
--- NOTE | 2018-12-12 07:13 | NUR ---
Pt. resting in bed alert oriented x4. Gave pt. Stend[place] for pain in left above knee amputation. Pt. reports pain level has decreased. Emptied rian rachel drain of 5 cc light red liquid. Gave pt. PRN milk of magnesia due to pt. not having bowel movement and lab needing occult blood stool sample. Vital signs stable. Blood sugar of 188 mg/ dl. Safety measures in place. Will endorse to AM nurse.
--- NOTE | 2018-12-12 07:15 | NUR ---
RECEIVED PATIENT SLEEPING IN BED, NO DISTRESS NOTED. BED IN LOWEST POSITION, SIDE RAILS UP X2, CALL LIGHT WITHIN REACH WILL CONTINUE TO MONITOR.
--- NOTE | 2018-12-12 07:35 | NUR ---
Dr. Min called back. I reported critical lab values of albumin and H&H. Will endorse to AM nurse
[2018-12-12 08:20] LABS: EOSINOPHILS % (MANUAL) 3 % (0-8); LYMPHOCYTES % (MANUAL) 18 % (20-40); METAMYELOCYTES % 2 % (0-1); MONOCYTES % (MANUAL) 5 % (2-10); NEUTROPHILS % (MANUAL) 72 % (42-75)
[2018-12-12] MEDS: CARVEDILOL 12.5 MG TABLET PO SCH ×2 (09:00→17:11)
[2018-12-12] MEDS: MUPIROCIN 2% OINT 22 GM TUBE NS SCH ×2 (09:01→21:23)
[2018-12-12] MEDS: DOCUSATE SODIUM 100 MG CAPSULE PO SCH ×2 (09:01→17:06)
[2018-12-12] MEDS: PROTEIN SUPPLEMENT (PROSTAT) 30 ML LIQUID PO SCH ×3 (09:01→17:11)
[2018-12-12] MEDS: FERROUS SULFATE 325 MG TABEC PO SCH ×2 (09:01→17:06)
[2018-12-12] MEDS: FOLIC ACID 1 MG TABLET PO SCH (09:02)
[2018-12-12] MEDS: FUROSEMIDE 20 MG TABLET PO SCH (09:02)
[2018-12-12] MEDS: MAGNESIUM OXIDE 400 MG TABLET PO SCH (09:03)
[2018-12-12] MEDS: AMLODIPINE 10 MG TABLET PO SCH (09:03)
[2018-12-12] MEDS: LISINOPRIL 10 MG TABLET PO SCH ×2 (09:03→21:23)
[2018-12-12] MEDS: MULTIVIT, IRON, MIN NO. 8, FA TABLET PO SCH (09:04)
[2018-12-12] MEDS: ASCORBIC ACID 500 MG TABLET PO SCH (09:04)
[2018-12-12] MEDS: ZINC SULFATE 220 MG CAPSULE PO SCH (09:05)
[2018-12-12] MEDS: INSULIN REGULAR, HUMAN 300 UNIT/3 ML VIAL SQ PRN ×3 (09:12→17:10)
[2018-12-12] MEDS: ASPIRIN 81 MG TAB.CHEW PO SCH (09:45)
[2018-12-12] MEDS: MIRALAX 17 GM POWD.PACK PO SCH (09:45)
[2018-12-12] MEDS: HYDROMORPHONE 1 MG/1 ML DISP.SYRIN IV PRN ×2 (11:37→20:15)
[2018-12-12 11:42] VITALS: BP 127/54
[2018-12-12] MEDS: VANCOMYCIN IV 1 G in PREMIXED 0 EACH IV SCH (12:05)
--- NOTE | 2018-12-12 13:53 | NUR ---
Clinical Pharmacy Note: Vancomycin Dosing per Pharmacy Subjective: Vancomycin IV to continue on this 78 yo male patient for infected BKA Objective: BUN 28 /Scr 0.8 WBC 9.9 Temperature 99.6 ht 170 cm wt 53 kg Trough / @2330: 5.8 Assessment/Plan: As trough subtherapeutic, adjusted regimen to vanco 1gm q14h, first dose today at 1200. Will order trough before 4th scheduled dose (not ordered yet). Will follow
[2018-12-12] MEDS ORDERED: NEUTRA PHOS PACKET PO ONE (15:30)
[2018-12-12] MEDS ORDERED: ALBUMIN HUMAN 25% 100 ML IV ONE (15:56)
[2018-12-12 16:07] VITALS: BP 124/56
[2018-12-12 16:26] LABS: *CREATININE,URINE 98.6 mg/dL (30-125); *URINE TOTAL PROTEIN RANDOM 86.6 mg/dL (<150/24HR)
[2018-12-12] MEDS: RIVAROXABAN 10 MG TABLET PO SCH (17:09)
--- NOTE | 2018-12-12 18:25 | NUR ---
Patient slept intermittently throughout day, no distress noted during shift. Wound treatment done. Pain management provided for AKA. iv antibiotics given. bed in lowest position, side rails up x2 call light within reach.
[2018-12-12 20:51] VITALS: BP 129/67
[2018-12-12] MEDS: ATORVASTATIN 40 MG TABLET PO SCH (21:23)
[2018-12-12] MEDS: INSULIN GLARGINE,HUM 300 UNITS/3 ML CARTRIDGE SQ SCH (21:27)
[2018-12-12] MEDS: INSULIN REGULAR, HUMAN 300 UNITS/3 ML VIAL SQ PRN (21:28)
[2018-12-13] VITALS (11 sets, daily range): BP systolic 108–131; BP diastolic 50–68
[2018-12-13] MEDS: VANCOMYCIN IV 1 G in PREMIXED 0 EACH IV SCH ×2 (02:47→15:46)
[2018-12-13] MEDS: HYDROMORPHONE 1 MG/1 ML DISP.SYRIN IV PRN ×2 (04:23→09:05)
[2018-12-13] MEDS: PIPERACILLIN/TAZOBACTAM/D5W 3.375 G in PREMIXED 1 EACH IV SCH ×3 (05:11→21:04)
[2018-12-13 06:24] LABS: BASOPHILS % (AUTO) 0.5 % (0.0-2.0); EOSINOPHILS # (AUTO) 0.2 K/uL (0.0-0.7); EOSINOPHILS % (AUTO) 2.7 % (0.0-7.0); LYMPHOCYTES # (AUTO) 1.4 K/uL (20.0-40.0); LYMPHOCYTES % (AUTO) 17.8 % (20.5-51.5); MEAN CORPUSCULAR HEMOGLOBIN 24.8 uug (23.8-33.4); MEAN CORPUSCULAR HGB CONC 34 g/dL (32.5-36.3); MONOCYTES # (AUTO) 0.5 K/uL (2.0-10.0); MONOCYTES % (AUTO) 6.1 % (0.0-11.0); NEUTROPHILS # (AUTO) 5.9 K/uL (1.8-8.9); NEUTROPHILS % (AUTO) 72.9 % (38.5-71.5); PLATELET COUNT (AUTO) 306 K/uL (152-348); RED BLOOD CELL COUNT(AUTO) 2.82 MIL/uL (4.06-5.63)
[2018-12-13 06:28] LABS: HEMATOCRIT 20.8 % (36.7-47.1)
[2018-12-13 06:32] LABS: ALANINE AMINOTRANSFERASE 26 U/L (16-63); ALKALINE PHOSPHATASE 101 U/L (50-136); ASPARTATE AMINOTRANSFERASE 21 U/L (15-37); BILIRUBIN,TOTAL 0.3 mg/dL (0.2-1.0); CARBON DIOXIDE 31 mmol/L (21-32); CHLORIDE 103 mmol/L (98-107); CREATININE 0.8 mg/dL (0.6-1.3); GLUCOSE 216 mg/dL (74-106); MAGNESIUM 1.9 mg/dL (1.8-2.4); PHOSPHOROUS 1.7 mg/dL (2.5-4.9); POTASSIUM 4.6 mmol/L (3.5-5.1); TOTAL PROTEIN, SERUM 5.5 g/dL (6.4-8.2); UREA NITROGEN, BLOOD 32 mg/dL (7-18)
[2018-12-13] MEDS: PANTOPRAZOLE SODIUM 40 MG TABLET.DR PO SCH (06:32)
[2018-12-13] MEDS: BLOOD SUGAR DIAGNOSTIC 1 EACH STRIP VI SCH ×4 (06:47→21:02)
--- NOTE | 2018-12-13 06:47 | NUR ---
Patient slept well at night, no distress noted during shift. SUNNI drain was removed by . Pain management provided with PRN Dilaudid. iv antibiotics given. bed in lowest position, side rails up x2 call light within reach. Patient had 2 BM during the shift. Stool sample sent to the lab. No fever during the shift.
--- NOTE | 2018-12-13 07:30 | NUR ---
Patient is sleeping in bed, no distress noted. bed in lowest position, side rails up x2 call light within reach. Cont monitor and care plan
[2018-12-13] MEDS: PROTEIN SUPPLEMENT (PROSTAT) 30 ML LIQUID PO SCH ×3 (08:06→17:12)
[2018-12-13] MEDS: INSULIN REGULAR, HUMAN 300 UNIT/3 ML VIAL SQ PRN ×3 (08:09→17:07)
[2018-12-13] MEDS: CARVEDILOL 12.5 MG TABLET PO SCH ×2 (08:10→17:12)
[2018-12-13] MEDS: FERROUS SULFATE 325 MG TABEC PO SCH ×2 (08:11→17:08)
[2018-12-13] MEDS: MULTIVIT, IRON, MIN NO. 8, FA TABLET PO SCH (08:11)
[2018-12-13] MEDS: DOCUSATE SODIUM 100 MG CAPSULE PO SCH ×2 (08:11→17:08)
[2018-12-13] MEDS: MAGNESIUM OXIDE 400 MG TABLET PO SCH (08:11)
[2018-12-13] MEDS: ASCORBIC ACID 500 MG TABLET PO SCH (08:11)
[2018-12-13] MEDS: FUROSEMIDE 20 MG TABLET PO SCH (08:12)
[2018-12-13] MEDS: ASPIRIN 81 MG TAB.CHEW PO SCH (08:12)
[2018-12-13] MEDS: MIRALAX 17 GM POWD.PACK PO SCH (08:12)
[2018-12-13] MEDS: FOLIC ACID 1 MG TABLET PO SCH (08:12)
[2018-12-13] MEDS: ZINC SULFATE 220 MG CAPSULE PO SCH (08:12)
[2018-12-13] MEDS: MUPIROCIN 2% OINT 22 GM TUBE NS SCH ×2 (08:13→21:02)
[2018-12-13] MEDS: LISINOPRIL 10 MG TABLET PO SCH ×2 (09:04→21:01)
[2018-12-13] MEDS: AMLODIPINE 10 MG TABLET PO SCH (09:05)
[2018-12-13] MEDS: NEUTRA PHOS PACKET PO SCH ×2 (10:46→17:08)
--- NOTE | 2018-12-13 14:07 | NUR ---
Clinical Pharmacy Note: Vancomycin Dosing per Pharmacy Subjective: Vancomycin IV to continue on this 78 yo male patient for infected BKA Objective: BUN 32 /Scr 0.8 WBC 8.0 Temperature 98.3 ht 170 cm wt 53 kg Trough 12/11 @2330: 5.8 Assessment/Plan: Since renal function is stable, continue Vancomycin 1gram IV every 14hrs(third dose at 1400 today) and draw trough by 4th dose(ordered for tomorrow at 0530) for expected trough around 15. Will follow the level.
--- NOTE | 2018-12-13 14:40 | NUR ---
Transfusion went well, w/o any reactions
[2018-12-13] MEDS: HYDROCODONE/APAP 10-325 MG TABLET PO PRN (15:46)
[2018-12-13] MEDS: RIVAROXABAN 10 MG TABLET PO SCH (17:09)
--- NOTE | 2018-12-13 18:35 | NUR ---
Patient is sleeping in bed, no distress noted. Pain management provided with PRN Dilaudid and [place]. iv antibiotics given. Wound care is done, no reaction to the transfusion noted after and during transfusion of 1 unit bed in lowest position, side rails up x2 call light within reach. No fever during the shift. Safety maintained
--- NOTE | 2018-12-13 19:41 | NUR ---
Received patient awake in bed, not in any form of distress. No complaint made. Noted daughter at bedside. Noted S/P Left above knee amputation with clean, dry, intact dressing on site. Post operative site kept elevated with a pillow. Still with air mattress in place. Bed in low position, locked, side rails up x 2. Noise and lights subdued. Will continue to monitor.
[2018-12-13] MEDS: ATORVASTATIN 40 MG TABLET PO SCH (21:01)
[2018-12-13] MEDS: HYDROCODONE/APAP 5-325MG TABLET PO PRN (21:02)
[2018-12-13] MEDS: INSULIN REGULAR, HUMAN 300 UNITS/3 ML VIAL SQ PRN (21:12)
[2018-12-13] MEDS: INSULIN GLARGINE,HUM 300 UNITS/3 ML CARTRIDGE SQ SCH (21:13)
[2018-12-14] MEDS: HYDROMORPHONE 1 MG/1 ML DISP.SYRIN IV PRN (03:31)
[2018-12-14 04:20] VITALS: BP 151/69
--- NOTE | 2018-12-14 05:44 | NUR ---
Patient slept well throughout the night. With complaints of pain relieved with prn medications. Attended all needs. Ensured safety and comfort.
[2018-12-14] MEDS: PIPERACILLIN/TAZOBACTAM/D5W 3.375 G in PREMIXED 1 EACH IV SCH ×2 (05:47→13:25)
[2018-12-14 05:53] LABS: BASOPHILS # (AUTO) 0.1 K/uL (0.0-8.0); BASOPHILS % (AUTO) 0.8 % (0.0-2.0); EOSINOPHILS # (AUTO) 0.4 K/uL (0.0-0.7); EOSINOPHILS % (AUTO) 5.6 % (0.0-7.0); HEMATOCRIT 24.5 % (36.7-47.1); HEMOGLOBIN 8.3 g/dL (12.5-16.3); LYMPHOCYTES # (AUTO) 1.8 K/uL (20.0-40.0); MEAN CORPUSCULAR HGB CONC 34 g/dL (32.5-36.3); MEAN CORPUSCULAR VOLUME 74.1 fL (73.0-96.2); MONOCYTES # (AUTO) 0.5 K/uL (2.0-10.0); MONOCYTES % (AUTO) 6.9 % (0.0-11.0); NEUTROPHILS # (AUTO) 4.7 K/uL (1.8-8.9); NEUTROPHILS % (AUTO) 62.7 % (38.5-71.5); PLATELET COUNT (AUTO) 353 K/uL (152-348); RED BLOOD CELL COUNT(AUTO) 3.31 MIL/uL (4.06-5.63); WHITE BLOOD COUNT (AUTO) 7.5 K/uL (3.6-10.2)
[2018-12-14] MEDS: PANTOPRAZOLE SODIUM 40 MG TABLET.DR PO SCH (06:01)
[2018-12-14 06:06] LABS: CARBON DIOXIDE 30 mmol/L (21-32); CHLORIDE 104 mmol/L (98-107); CREATININE 0.7 mg/dL (0.6-1.3); GLUCOSE 98 mg/dL (74-106); MAGNESIUM 1.8 mg/dL (1.8-2.4); PHOSPHOROUS 2.5 mg/dL (2.5-4.9); POTASSIUM 4.3 mmol/L (3.5-5.1); UREA NITROGEN, BLOOD 26 mg/dL (7-18)
[2018-12-14] MEDS: BLOOD SUGAR DIAGNOSTIC 1 EACH STRIP VI SCH ×4 (06:31→20:06)
[2018-12-14] MEDS: HYDROCODONE/APAP 5-325MG TABLET PO PRN (06:32)
[2018-12-14] MEDS: VANCOMYCIN IV 1 G in PREMIXED 0 EACH IV SCH (06:47)
--- NOTE | 2018-12-14 07:15 | NUR ---
RECEIVED PATIENT ALERT AND ORIENTED X3 WITH NO SOB,AND PAIN MEDICATIONS GIVEN EARLIER . IV INTACT AND PATENT. SAFETY AND COMFORT PROVIDED AT ALL TIMES. WILL CONTINUE TREATMENT PLAN.
[2018-12-14 07:40] LABS: EOSINOPHILS % (MANUAL) 9 % (0-8); LYMPHOCYTES % (MANUAL) 24 % (20-40); MONOCYTES % (MANUAL) 4 % (2-10); NEUTROPHILS % (MANUAL) 62 % (42-75)
[2018-12-14] MEDS: CARVEDILOL 12.5 MG TABLET PO SCH ×2 (08:35→17:26)
[2018-12-14] MEDS: LISINOPRIL 10 MG TABLET PO SCH ×2 (08:36→20:01)
[2018-12-14] MEDS: ASCORBIC ACID 500 MG TABLET PO SCH (08:36)
[2018-12-14] MEDS: FUROSEMIDE 20 MG TABLET PO SCH (08:36)
[2018-12-14] MEDS: MAGNESIUM OXIDE 400 MG TABLET PO SCH (08:36)
[2018-12-14] MEDS: DOCUSATE SODIUM 100 MG CAPSULE PO SCH ×2 (08:36→17:23)
[2018-12-14] MEDS: AMLODIPINE 10 MG TABLET PO SCH (08:37)
[2018-12-14] MEDS: ZINC SULFATE 220 MG CAPSULE PO SCH (08:37)
[2018-12-14] MEDS: ASPIRIN 81 MG TAB.CHEW PO SCH (08:37)
[2018-12-14] MEDS: MULTIVIT, IRON, MIN NO. 8, FA TABLET PO SCH (08:37)
[2018-12-14] MEDS: MUPIROCIN 2% OINT 22 GM TUBE NS SCH ×2 (08:37→20:02)
[2018-12-14] MEDS: FOLIC ACID 1 MG TABLET PO SCH (08:37)
[2018-12-14] MEDS: NEUTRA PHOS PACKET PO SCH (08:44)
[2018-12-14] MEDS: MIRALAX 17 GM POWD.PACK PO SCH (08:44)
[2018-12-14] MEDS: FERROUS SULFATE 325 MG TABEC PO SCH ×2 (08:56→17:23)
[2018-12-14] MEDS: PROTEIN SUPPLEMENT (PROSTAT) 30 ML LIQUID PO SCH ×3 (08:56→17:24)
--- NOTE | 2018-12-14 10:23 | NUR ---
Clinical Pharmacy Note: Vancomycin Dosing per Pharmacy Subjective: Vancomycin IV to continue on this 78 yo male patient for infected BKA Objective: BUN 26 /Scr 0.5 WBC 7.5 Temperature 98.4 ht 170 cm wt 53 kg vanco trough level on 12/11 @2330: 5.8 Vanco trough level on at 0530: 16.5 Assessment/Plan: Since vanco trough level is within therapeutic range, will continue same dose of Vancomycin 1gram IV every 14hrs. Will monitor renal function & repeat vanco trough level if needed Will follow.
[2018-12-14 11:36] VITALS: BP 133/80
[2018-12-14 12:00] VITALS: BP 138/59
[2018-12-14] MEDS: INSULIN REGULAR, HUMAN 300 UNIT/3 ML VIAL SQ PRN ×2 (12:55→17:27)
[2018-12-14 15:46] VITALS: BP 125/63
[2018-12-14] MEDS: RIVAROXABAN 10 MG TABLET PO SCH (17:28)
--- NOTE | 2018-12-14 18:32 | NUR ---
PATIENT ALERT AND ORIENTED X3 WITH NO SOB AND NO C/O PAIN AT THIS TIME. PATIENT IN CONTACT ISOLATION FOR ESBL IN THE URINE. CONTINUE ON ATB WITH NO ASE NOTED AT THIS TIME. IV INTACT AND PATENT. SAFETY AND COMFORT PROVIDED AT ALL TIMES. WILL CONTINUE TREATMENT PLAN.
--- NOTE | 2018-12-14 19:46 | NUR ---
Received patient awake in bed, not in any form of distress. With pain complaints, will give prn pain medication. Noted S/P Left above knee amputation with clean, dry, intact dressing on site. Post operative site kept elevated with a pillow. Still with air mattress in place. Bed in low position, locked, side rails up x 2. Noise and lights subdued. Will continue to monitor.
[2018-12-14] MEDS: ATORVASTATIN 40 MG TABLET PO SCH (20:01)
[2018-12-14] MEDS: HYDROCODONE/APAP 10-325 MG TABLET PO PRN (20:01)
[2018-12-14 20:09] VITALS: BP 147/70
[2018-12-14] MEDS: INSULIN REGULAR, HUMAN 300 UNITS/3 ML VIAL SQ PRN (20:11)
[2018-12-14] MEDS: INSULIN GLARGINE,HUM 300 UNITS/3 ML CARTRIDGE SQ SCH (20:12)
[2018-12-15] VITALS: BP 132/60
[2018-12-15 05:38] VITALS: BP 132/70
--- NOTE | 2018-12-15 05:38 | NUR ---
Patient slept well throughout the night. With complaints of pain relieved with prn medications. Attended all needs. Ensured safety and comfort.
[2018-12-15] MEDS: HYDROCODONE/APAP 10-325 MG TABLET PO PRN ×2 (06:02→17:26)
[2018-12-15] MEDS: PANTOPRAZOLE SODIUM 40 MG TABLET.DR PO SCH (06:02)
[2018-12-15] MEDS: BLOOD SUGAR DIAGNOSTIC 1 EACH STRIP VI SCH ×4 (06:33→20:38)
[2018-12-15 07:01] LABS: BASOPHILS # (AUTO) 0.1 K/uL (0.0-8.0); BASOPHILS % (AUTO) 0.7 % (0.0-2.0); EOSINOPHILS # (AUTO) 0.3 K/uL (0.0-0.7); HEMATOCRIT 26.6 % (36.7-47.1); LYMPHOCYTES # (AUTO) 1.9 K/uL (20.0-40.0); LYMPHOCYTES % (AUTO) 23.6 % (20.5-51.5); MEAN CORPUSCULAR HEMOGLOBIN 25.3 uug (23.8-33.4); MEAN CORPUSCULAR HGB CONC 34 g/dL (32.5-36.3); MONOCYTES # (AUTO) 0.4 K/uL (2.0-10.0); MONOCYTES % (AUTO) 4.6 % (0.0-11.0); NEUTROPHILS # (AUTO) 5.3 K/uL (1.8-8.9); NEUTROPHILS % (AUTO) 67.1 % (38.5-71.5); PLATELET COUNT (AUTO) 409 K/uL (152-348); RED BLOOD CELL COUNT(AUTO) 3.55 MIL/uL (4.06-5.63); WHITE BLOOD COUNT (AUTO) 7.9 K/uL (3.6-10.2)
[2018-12-15 07:06] LABS: ALANINE AMINOTRANSFERASE 28 U/L (16-63); ALKALINE PHOSPHATASE 110 U/L (50-136); ASPARTATE AMINOTRANSFERASE 22 U/L (15-37); BILIRUBIN,TOTAL 0.3 mg/dL (0.2-1.0); CARBON DIOXIDE 27 mmol/L (21-32); CHLORIDE 102 mmol/L (98-107); CREATININE 0.7 mg/dL (0.6-1.3); GLUCOSE 93 mg/dL (74-106); MAGNESIUM 1.8 mg/dL (1.8-2.4); PHOSPHOROUS 2.5 mg/dL (2.5-4.9); POTASSIUM 4.3 mmol/L (3.5-5.1); TOTAL PROTEIN, SERUM 5.8 g/dL (6.4-8.2); UREA NITROGEN, BLOOD 19 mg/dL (7-18)
--- NOTE | 2018-12-15 07:30 | NUR ---
Received patient awake in bed. AAOx3. No complaints of pain or s/s of acute distress at this time. Left AKA noted. Dressing intact. Contact isolation in place. IV intact and patent. Safety and comfort measures implemented. All needs met. Will continue to monitor throughout shift.
[2018-12-15 09:19] LABS: A/G RATIO 0.5 (0.7-1.7); ALBUMIN 1.7 g/dL (2.9-4.4); ALPHA-1-GLOBULIN 0.4 g/dL (0.0-0.4); ALPHA-2-GLOBULIN 0.9 g/dL (0.4-1.0); BETA GLOBULIN 0.9 g/dL (0.7-1.3); GAMMA GLOBULIN 1.1 g/dL (0.4-1.8); GLOBULIN, TOTAL 3.3 g/dL (2.2-3.9); M-SPIKE Not Observed g/dL (Not Observed)
[2018-12-15] MEDS: FUROSEMIDE 20 MG TABLET PO SCH (09:20)
[2018-12-15] MEDS: LISINOPRIL 10 MG TABLET PO SCH ×2 (09:20→20:42)
[2018-12-15] MEDS: CARVEDILOL 12.5 MG TABLET PO SCH ×2 (09:21→18:39)
[2018-12-15] MEDS: MAGNESIUM OXIDE 400 MG TABLET PO SCH (09:21)
[2018-12-15] MEDS: ASCORBIC ACID 500 MG TABLET PO SCH (09:22)
[2018-12-15] MEDS: FERROUS SULFATE 325 MG TABEC PO SCH ×2 (09:22→17:14)
[2018-12-15] MEDS: ASPIRIN 81 MG TAB.CHEW PO SCH (09:23)
[2018-12-15] MEDS: AMLODIPINE 10 MG TABLET PO SCH (09:23)
[2018-12-15] MEDS: MULTIVIT, IRON, MIN NO. 8, FA TABLET PO SCH (09:23)
[2018-12-15] MEDS: DOCUSATE SODIUM 100 MG CAPSULE PO SCH ×2 (09:23→17:14)
[2018-12-15] MEDS: ZINC SULFATE 220 MG CAPSULE PO SCH (09:24)
[2018-12-15] MEDS: FOLIC ACID 1 MG TABLET PO SCH (09:24)
[2018-12-15] MEDS: PROTEIN SUPPLEMENT (PROSTAT) 30 ML LIQUID PO SCH ×3 (09:32→17:14)
[2018-12-15] MEDS: MUPIROCIN 2% OINT 22 GM TUBE NS SCH ×2 (09:32→20:43)
[2018-12-15] MEDS: HYDROMORPHONE 1 MG/1 ML DISP.SYRIN IV PRN ×3 (09:32→20:45)
[2018-12-15] MEDS: MIRALAX 17 GM POWD.PACK PO SCH (10:02)
[2018-12-15 11:40] VITALS: BP 133/63
[2018-12-15] MEDS: INSULIN REGULAR, HUMAN 300 UNIT/3 ML VIAL SQ PRN ×2 (12:20→17:22)
[2018-12-15 16:00] VITALS: BP 116/58
--- NOTE | 2018-12-15 18:15 | NUR ---
Patient compliant with care, tolerated medications. Complained of pain on LLE due to status post left AKA. PRN [place] and Dilaudid administered and effective. Family at bedside at this time. All needs met. Call light within reach. Continue plan of care.
[2018-12-15] MEDS: RIVAROXABAN 10 MG TABLET PO SCH (18:32)
--- NOTE | 2018-12-15 19:40 | NUR ---
RECEIVED PATIENT AWAKE IN BED. A/O X4. N[place] SPEAKING BUT ABLE TO MAKE NEEDS KNOWN. VSS. NO C/O PAIN AT THIS TIME. NO RESP. DISTRESS NOTED. HEPLOCK INTACT AND NOTED TO LEFT AC. CALL LIGHT IN REACH. BED ALARM ON. ALL NEEDS ATTENDED. WILL CONTINUE TO MONITOR AND ASSESS.
[2018-12-15] MEDS: INSULIN GLARGINE,HUM 300 UNITS/3 ML CARTRIDGE SQ SCH (20:39)
[2018-12-15] MEDS: INSULIN REGULAR, HUMAN 300 UNITS/3 ML VIAL SQ PRN (20:40)
[2018-12-15] MEDS: ATORVASTATIN 40 MG TABLET PO SCH (20:40)
[2018-12-15 20:49] VITALS: BP 132/66
[2018-12-16] MEDS: HYDROCODONE/APAP 10-325 MG TABLET PO PRN (00:04)
[2018-12-16 05:09] LABS: *PEU ALBUMIN, UR Note: % (.); *PEU PROTEIN, TOTAL, UR 82.9 mg/dL (Not Estab.)
[2018-12-16 05:42] LABS: BASOPHILS # (AUTO) 0.1 K/uL (0.0-8.0); BASOPHILS % (AUTO) 1.1 % (0.0-2.0); EOSINOPHILS # (AUTO) 0.3 K/uL (0.0-0.7); EOSINOPHILS % (AUTO) 4.7 % (0.0-7.0); HEMATOCRIT 25.7 % (36.7-47.1); HEMOGLOBIN 8.7 g/dL (12.5-16.3); LYMPHOCYTES # (AUTO) 2.1 K/uL (20.0-40.0); LYMPHOCYTES % (AUTO) 29.9 % (20.5-51.5); MEAN CORPUSCULAR HEMOGLOBIN 25.5 uug (23.8-33.4); MEAN CORPUSCULAR HGB CONC 34 g/dL (32.5-36.3); MEAN CORPUSCULAR VOLUME 75.3 fL (73.0-96.2); MONOCYTES # (AUTO) 0.4 K/uL (2.0-10.0); MONOCYTES % (AUTO) 5.7 % (0.0-11.0); NEUTROPHILS # (AUTO) 4.1 K/uL (1.8-8.9); NEUTROPHILS % (AUTO) 58.6 % (38.5-71.5); PLATELET COUNT (AUTO) 390 K/uL (152-348); RED BLOOD CELL COUNT(AUTO) 3.42 MIL/uL (4.06-5.63)
[2018-12-16] MEDS: PANTOPRAZOLE SODIUM 40 MG TABLET.DR PO SCH (06:03)
[2018-12-16 06:04] LABS: CARBON DIOXIDE 29 mmol/L (21-32); CHLORIDE 102 mmol/L (98-107); CREATININE 0.7 mg/dL (0.6-1.3); GLUCOSE 118 mg/dL (74-106); MAGNESIUM 1.9 mg/dL (1.8-2.4); PHOSPHOROUS 2.5 mg/dL (2.5-4.9); POTASSIUM 4.4 mmol/L (3.5-5.1); UREA NITROGEN, BLOOD 27 mg/dL (7-18)
[2018-12-16 06:29] VITALS: BP 156/68
[2018-12-16] MEDS: BLOOD SUGAR DIAGNOSTIC 1 EACH STRIP VI SCH ×4 (06:33→20:32)
--- NOTE | 2018-12-16 07:12 | NUR ---
RECEIVED PATIENT AWAKE IN BED. ALERT AND ORIENTED X3. ABLE TO MAKE NEEDS KNOWN. . NO C/O PAIN AT THIS TIME. IV INTACT . CALL LIGHT IN REACH. BED ALARM ON. ALL NEEDS ATTENDED. WILL CONTINUE TO MONITOR AND ASSESS.
[2018-12-16] MEDS: MUPIROCIN 2% OINT 22 GM TUBE NS SCH (09:07)
[2018-12-16] MEDS: CARVEDILOL 12.5 MG TABLET PO SCH ×2 (09:07→17:50)
[2018-12-16] MEDS: PROTEIN SUPPLEMENT (PROSTAT) 30 ML LIQUID PO SCH ×3 (09:07→16:28)
[2018-12-16] MEDS: MULTIVIT, IRON, MIN NO. 8, FA TABLET PO SCH (09:08)
[2018-12-16] MEDS: ASCORBIC ACID 500 MG TABLET PO SCH (09:08)
[2018-12-16] MEDS: FERROUS SULFATE 325 MG TABEC PO SCH ×2 (09:08→16:28)
[2018-12-16] MEDS: FOLIC ACID 1 MG TABLET PO SCH (09:08)
[2018-12-16] MEDS: AMLODIPINE 10 MG TABLET PO SCH (09:08)
[2018-12-16] MEDS: LISINOPRIL 10 MG TABLET PO SCH ×2 (09:08→20:14)
[2018-12-16] MEDS: ASPIRIN 81 MG TAB.CHEW PO SCH (09:08)
[2018-12-16] MEDS: FUROSEMIDE 20 MG TABLET PO SCH (09:08)
[2018-12-16] MEDS: ZINC SULFATE 220 MG CAPSULE PO SCH (09:08)
[2018-12-16] MEDS: DOCUSATE SODIUM 100 MG CAPSULE PO SCH ×2 (09:09→16:28)
[2018-12-16] MEDS: MIRALAX 17 GM POWD.PACK PO SCH (09:09)
[2018-12-16] MEDS: MAGNESIUM OXIDE 400 MG TABLET PO SCH (09:09)
[2018-12-16 11:46] VITALS: BP 137/56
[2018-12-16] MEDS: INSULIN REGULAR, HUMAN 300 UNIT/3 ML VIAL SQ PRN ×2 (12:46→17:38)
[2018-12-16] MEDS: HYDROCODONE/APAP 5-325MG TABLET PO PRN (16:28)
[2018-12-16 16:29] VITALS: BP 152/63
[2018-12-16] MEDS: RIVAROXABAN 10 MG TABLET PO SCH (17:51)
--- NOTE | 2018-12-16 18:53 | NUR ---
PATIENT ALERT AND ORIENTED , ABLE TO MAKE NEEDS KNOWN, NO PAIN NOTED AT THIS TIME, SAFETY AND COMFORT PROVIDED AT ALL TIMES.
--- NOTE | 2018-12-16 19:30 | NUR ---
patient received lying in bed. a/o x3. no signs of acute distress at this time. safety and comfort measures provided. bed in lowest position, bed alarm on, and call light within reach. will continue to monitor.
[2018-12-16 20:12] VITALS: BP 131/57
[2018-12-16] MEDS: HYDROMORPHONE 1 MG/1 ML DISP.SYRIN IV PRN (20:13)
[2018-12-16] MEDS: ATORVASTATIN 40 MG TABLET PO SCH (20:14)
[2018-12-16] MEDS: INSULIN GLARGINE,HUM 300 UNITS/3 ML CARTRIDGE SQ SCH (20:30)
[2018-12-16] MEDS: INSULIN REGULAR, HUMAN 300 UNITS/3 ML VIAL SQ PRN (20:31)
[2018-12-17] MEDS: HYDROMORPHONE 1 MG/1 ML DISP.SYRIN IV PRN (01:10)
--- NOTE | 2018-12-17 05:50 | NUR ---
patient slept intermittently. no signs of acute distress. all medications administered and tolerated well. Left AKA wound care provided. safety and comfort measures provided. will endorse care to morning nurse. c/o of pain. Dilaudid administered 2313, 0110. tolerated well.
[2018-12-17] MEDS: PANTOPRAZOLE SODIUM 40 MG TABLET.DR PO SCH (06:00)
[2018-12-17 06:23] VITALS: BP 150/69
[2018-12-17 06:30] LABS: BASOPHILS # (AUTO) 0.1 K/uL (0.0-8.0); EOSINOPHILS # (AUTO) 0.2 K/uL (0.0-0.7); EOSINOPHILS % (AUTO) 3.2 % (0.0-7.0); HEMATOCRIT 24.1 % (36.7-47.1); HEMOGLOBIN 8.3 g/dL (12.5-16.3); LYMPHOCYTES % (AUTO) 28.7 % (20.5-51.5); MEAN CORPUSCULAR HEMOGLOBIN 25.7 uug (23.8-33.4); MEAN CORPUSCULAR HGB CONC 34 g/dL (32.5-36.3); MEAN CORPUSCULAR VOLUME 74.9 fL (73.0-96.2); MONOCYTES # (AUTO) 0.4 K/uL (2.0-10.0); MONOCYTES % (AUTO) 5.3 % (0.0-11.0); NEUTROPHILS # (AUTO) 4.2 K/uL (1.8-8.9); NEUTROPHILS % (AUTO) 61.8 % (38.5-71.5); PLATELET COUNT (AUTO) 384 K/uL (152-348); RED BLOOD CELL COUNT(AUTO) 3.22 MIL/uL (4.06-5.63); WHITE BLOOD COUNT (AUTO) 6.9 K/uL (3.6-10.2)
[2018-12-17 06:35] LABS: CARBON DIOXIDE 29 mmol/L (21-32); CHLORIDE 100 mmol/L (98-107); CREATININE 0.6 mg/dL (0.6-1.3); GLUCOSE 164 mg/dL (74-106); POTASSIUM 4.1 mmol/L (3.5-5.1); UREA NITROGEN, BLOOD 22 mg/dL (7-18)
--- NOTE | 2018-12-17 07:15 | NUR ---
Nurse Notes: received report from the night nurse Elzbieta Garcia RN, received patient resting in bed, complaining of pain. last pain medication was last night.
[2018-12-17] MEDS: BLOOD SUGAR DIAGNOSTIC 1 EACH STRIP VI SCH ×2 (07:28→11:47)
[2018-12-17 08:23] VITALS: BP 173/73
[2018-12-17] MEDS: CARVEDILOL 12.5 MG TABLET PO SCH (08:27)
[2018-12-17] MEDS: INSULIN REGULAR, HUMAN 300 UNIT/3 ML VIAL SQ PRN ×2 (08:37→12:23)
[2018-12-17] MEDS: PROTEIN SUPPLEMENT (PROSTAT) 30 ML LIQUID PO SCH ×2 (08:37→12:20)
[2018-12-17] MEDS: ZINC SULFATE 220 MG CAPSULE PO SCH (08:52)
[2018-12-17] MEDS: ASPIRIN 81 MG TAB.CHEW PO SCH (08:52)
[2018-12-17] MEDS: LISINOPRIL 10 MG TABLET PO SCH (08:52)
[2018-12-17] MEDS: MAGNESIUM OXIDE 400 MG TABLET PO SCH (08:53)
[2018-12-17] MEDS: MULTIVIT, IRON, MIN NO. 8, FA TABLET PO SCH (08:53)
[2018-12-17] MEDS: HYDROCODONE/APAP 10-325 MG TABLET PO PRN (08:54)
[2018-12-17] MEDS: ASCORBIC ACID 500 MG TABLET PO SCH (08:54)
[2018-12-17] MEDS: FUROSEMIDE 20 MG TABLET PO SCH (08:54)
[2018-12-17] MEDS: FERROUS SULFATE 325 MG TABEC PO SCH (08:54)
[2018-12-17] MEDS: DOCUSATE SODIUM 100 MG CAPSULE PO SCH (08:54)
[2018-12-17] MEDS: AMLODIPINE 10 MG TABLET PO SCH (08:55)
[2018-12-17] MEDS: MIRALAX 17 GM POWD.PACK PO SCH (09:00)
[2018-12-17] MEDS: FOLIC ACID 1 MG TABLET PO SCH (09:09)
[2018-12-17 11:03] VITALS: BP 139/64
--- NOTE | 2018-12-17 14:00 | NUR ---
Nurse Notes: report given to Latrice Parrish RN at [facility]. patient is going to room 14A.
[2018-12-17 15:07] VITALS: BP 142/74
[2018-12-17 15:39] VITALS: BP 140/60
--- NOTE | 2018-12-17 15:39 | NUR ---
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 BP retaken, manual cuff was 140/60. 76 HR
[2018-12-18 06:07] LABS: HEPATITIS B SURFACE AG Negative (Negative)
== END 2018-12-17 15:42 | DRG 474 ==
LOC: ER 10:49 → MEDSURG3 11:50
PROVIDERS: ADMIT Nurse Practitioner Acute Care; ATTEND Nurse Practitioner Acute Care
PROC: 0Y6D0Z3 Detachment at Left Upper Leg, Low, Open Approach (ICD-10-PCS; principal; 2018-12-10)
PROC: 30233N1 Transfusion of Nonautologous Red Blood Cells into Peripheral Vein, Percutaneous Approach (ICD-10-PCS; 2018-12-13)
DX: T87.54 Necrosis of amputation stump, left lower extremity (principal); T87.44 Infection of amputation stump, left lower extremity; A41.9 Sepsis, unspecified organism; N17.0 Acute kidney failure with tubular necrosis; E43 Unspecified severe protein-calorie malnutrition; E11.52 Type 2 diabetes mellitus with diabetic peripheral angiopathy with gangrene; E87.1 Hypo-osmolality and hyponatremia; I50.32 Chronic diastolic (congestive) heart failure; D68.59 Other primary thrombophilia; Z89.512 Acquired absence of left leg below knee; E78.5 Hyperlipidemia, unspecified; D63.8 Anemia in other chronic diseases classified elsewhere; E11.65 Type 2 diabetes mellitus with hyperglycemia; E11.42 Type 2 diabetes mellitus with diabetic polyneuropathy; Z79.4 Long term (current) use of insulin; B95.62 Methicillin resistant Staphylococcus aureus infection as the cause of diseases classified elsewhere; E86.0 Dehydration; Z22.322 Carrier or suspected carrier of Methicillin resistant Staphylococcus aureus; B95.2 Enterococcus as the cause of diseases classified elsewhere; E83.42 Hypomagnesemia; E87.6 Hypokalemia; G89.29 Other chronic pain; F03.90 Unspecified dementia, unspecified severity, without behavioral disturbance, psychotic disturbance, mood disturbance, and anxiety; I11.0 Hypertensive heart disease with heart failure; D69.6 Thrombocytopenia, unspecified; Z74.09 Other reduced mobility; I34.0 Nonrheumatic mitral (valve) insufficiency; K21.9 Gastro-esophageal reflux disease without esophagitis; K44.9 Diaphragmatic hernia without obstruction or gangrene; K59.00 Constipation, unspecified; Z16.24 Resistance to multiple antibiotics; Z89.611 Acquired absence of right leg above knee; Z85.46 Personal history of malignant neoplasm of prostate; Z79.899 Other long term (current) drug therapy; Z79.01 Long term (current) use of anticoagulants; K57.90 Diverticulosis of intestine, part unspecified, without perforation or abscess without bleeding; I27.20 Pulmonary hypertension, unspecified; I25.10 Atherosclerotic heart disease of native coronary artery without angina pectoris; E83.39 Other disorders of phosphorus metabolism; D50.9 Iron deficiency anemia, unspecified; Z89.612 Acquired absence of left leg above knee; Y83.5 Amputation of limb(s) as the cause of abnormal reaction of the patient, or of later complication, without mention of misadventure at the time of the procedure; I15.2 Hypertension secondary to endocrine disorders
CPT/HCPCS: 36415; 70030-TC; 71045; 83550; 83605; 83735; 83970; 84100; 84155; 84156; 84165; 84166; 85025; 85651; 85730; 86704; 86803; 86850; 86900; 86901; 86920; 87040; 87070; 87077; 87086; 87340; 87806; 93005; A4649; A4663; C1758; G0378; J1170; J1650; J1815; J2060; J2405; J2543; J2765; J3010; J3370; J3475; J3490; J7030; J7050; J7060; P9016-BL; P9021; P9047

== ENCOUNTER 2019-04-03 15:00 | Emergency (ER) | payer MEDICARE, OTHER ==
[~2019-04-03] VITALS: Ht 172.7 cm; Wt 67.1 kg
[~2019-04-03 15:00] MED LIST changes: -FURO-152 PO; +FURO20TA4 PO; +INSU100V7 SQ; -IPRA3AMP23 IH; -Insulin Glargine,Hum SQ; +MAGN400O6 PO; +NA P133E RC; -PANT40TA2 PO; -SULF1TAB48 PO; -ZINC220C8 PO
--- NOTE | 2019-04-03 15:19 | NUR ---
PT IS IN ROOM #2B. DR JUNG EVALUATED THE PT.
[2019-04-03 15:41] LABS: BASOPHILS # (AUTO) 0.1 K/uL (0.0-8.0); BASOPHILS % (AUTO) 1.3 % (0.0-2.0); EOSINOPHILS # (AUTO) 0.5 K/uL (0.0-0.7); EOSINOPHILS % (AUTO) 7.5 % (0.0-7.0); HEMATOCRIT 28.8 % (36.7-47.1); LYMPHOCYTES # (AUTO) 2.2 K/uL (20.0-40.0); LYMPHOCYTES % (AUTO) 32.5 % (20.5-51.5); MEAN CORPUSCULAR HEMOGLOBIN 30.1 uug (23.8-33.4); MEAN CORPUSCULAR HGB CONC 35 g/dL (32.5-36.3); MEAN CORPUSCULAR VOLUME 86.8 fL (73.0-96.2); MONOCYTES # (AUTO) 0.4 K/uL (2.0-10.0); MONOCYTES % (AUTO) 6.4 % (0.0-11.0); NEUTROPHILS # (AUTO) 3.5 K/uL (1.8-8.9); NEUTROPHILS % (AUTO) 52.3 % (38.5-71.5); PLATELET COUNT (AUTO) 226 K/uL (152-348); RED BLOOD CELL COUNT(AUTO) 3.32 MIL/uL (4.06-5.63); WHITE BLOOD COUNT (AUTO) 6.6 K/uL (3.6-10.2)
[2019-04-03 15:44] LABS: CREATININE 0.9 mg/dL (0.6-1.3); POTASSIUM 4.7 mmol/L (3.5-5.1)
[2019-04-03 15:50] LABS: BILIRUBIN,DIRECT 0.1 mg/dL (0.0-0.2); BILIRUBIN,TOTAL 0.2 mg/dL (0.2-1.0)
[2019-04-03 16:19] LABS: *BILIRUBIN,URIN NEGATIVE (NEGATIVE); *BLOOD, URINE NEGATIVE (NEGATIVE); *CLARITY,URINE CLEAR (CLEAR); *COLOR,URINE YELLOW (YELLOW); *KETONES,URINE TRACE (NEGATIVE); *UROBILINOGEN,URINE 0.2 E.U./dl (NORMAL); LEUKOCYTE ESTERASE ,URINE NEGATIVE (NEGATIVE); NITRITE, URINE NEGATIVE (NEGATIVE); PH,URINE 5.5 (5.0-8.0); UGLUCOSE NEGATIVE (NEGATIVE)
[2019-04-03 16:33] LABS: RBC,URINE 0-3 /HPF (0-3); SQUAMOUS EPITHELIAL CELL,UR FEW /HPF (NONE SEEN); WBC,URINE 0-3 /HPF (0-3)
[2019-04-03 16:34] LABS: MUCUS,URINE MODERATE /LPF (0-FEW)
[2019-04-03 17:15] VITALS: BP 139/69
--- NOTE | 2019-04-03 17:35 | NUR ---
PT WAS D/C'd TO [facility] VIA S AMBULANCE. REPORT WAS GIVEN TO AMBULANCE EMT ANT TO NURSING FACILITY.
--- NOTE | 2019-04-03 17:41 | NUR ---
AMBULANCE CALLED BACK THEY CHANGED CARYN TIME. AMBULANCE () IS GOING TO [place] [facility] [facility] THE PT AT 1930. TRIP # [id number].
--- NOTE | 2019-04-03 19:08 | NUR ---
Received report tramaine Gutierrez RN.
--- NOTE | 2019-04-03 19:48 | NUR ---
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
--- NOTE | 2019-04-03 20:43 | NUR ---
Patient Tranfers to outside Facility, [facility]. Physician: Dr. Franky Day Location: [facility]. patient picked up by ambulance. patient alert and oriented x4. patient VSS. SBAR given to EMTYung.
== END 2019-04-03 20:50 | disposition home or self-care (01) ==
LOC: ER 15:00
DX: G89.18 Other acute postprocedural pain (principal); R53.1 Weakness; K21.9 Gastro-esophageal reflux disease without esophagitis; E11.9 Type 2 diabetes mellitus without complications; Z88.2 Allergy status to sulfonamides; Z88.5 Allergy status to narcotic agent; Z79.1 Long term (current) use of non-steroidal anti-inflammatories (NSAID); Z79.4 Long term (current) use of insulin; Z79.84 Long term (current) use of oral hypoglycemic drugs; Z79.82 Long term (current) use of aspirin; Z79.899 Other long term (current) drug therapy
CPT/HCPCS: 36415; 70030-TC; 71045; 73551; 83605; 85025; 85651; 87040; 93005; A4663